=== PATIENT | female | born 1945 | race Caucasian/White ===

== ENCOUNTER 2017-12-01 15:48 | Inpatient (IN) ==
--- NOTE | 2017-12-01 15:52 | Emergency Department Note ---
Disposition Clinical Impression: Altered mental status, Pneumonia, CVA (cerebral vascular accident) Disposition: Admitted As Inpatient Condition: Fair General Adult HPI - General Stated complaint: Lethargic Time Seen by Provider: 12/01/17 15:51 - Related Data Home Medications Medication Instructions Recorded Confirmed Lisinopril [Zestril] 20 mg PO DAILY 03/02/15 10/03/17 Metoprolol [Lopressor] 50 mg PO BID 03/02/15 10/03/17 risperiDONE [Risperidone] 0.5 mg PO BID #0 03/02/15 10/03/17 Acetaminophen [Tylenol] 1,000 mg PO Q4H PRN 11/18/15 10/03/17 Alendronate Sodium [Fosamax] 70 mg PO WE 11/18/15 10/03/17 Bismuth Subsalicylate 15 ml PO Q4H PRN 11/18/15 10/03/17 [PEPTO-BISMOL (262mg/15mL) Susp] Calcium Carbonate/Vitamin D3 1 tab PO BID 11/18/15 10/03/17 [Oyster Shell 500-Vit D3 200 Tb] Cholecalciferol (D-3) [Vitamin D] 2,000 unit PO DAILY 11/18/15 10/03/17 Divalproex (24 HR) [Depakote ER 1,000 mg PO DAILY 11/18/15 10/03/17 (24 HR)] GuaiFENesin/Dextromethorphan 10 ml PO BID PRN 11/18/15 10/03/17 [Robitussin/Dm] Haloperidol 0.5 mg PO BID PRN 11/18/15 10/03/17 Loperamide HCl [Imodium A-D] 2 mg PO Q4H PRN 11/18/15 10/03/17 Loratadine [Claritin] 10 mg PO DAILY 11/18/15 10/03/17 MOM Conc [MILK OF MAGNESIA conc] 30 ml PO DAILY PRN 11/18/15 10/03/17 Multivitamin [Multi-Day Vitamins] 1 tab PO DAILY 11/18/15 10/03/17 [place]-3/Dha/Epa/Fish Oil [Fish Oil 1,000 mg PO TID 11/18/15 10/03/17 1,000 mg Softgel] Paroxetine HCl 10 mg PO DAILY 11/18/15 10/03/17 Chloraseptic [place] [Chloraseptic] 2 spray MM Q2H PRN 03/01/16 10/03/17 Ciclopirox [Loprox] 1 appl TP 3XW 03/01/16 10/03/17 Dicyclomine [Bentyl] 10 mg PO QID 03/01/16 10/03/17 Mometasone Furoate [Elocon] 1 appl TP SUTUTH 03/01/16 10/03/17 Selenium Sulfide/Menthol [Selsun 1 appl TP 3XW 03/01/16 10/03/17 Blue 1% Shampoo] Lipase/Protease/Amylase [Buck Abreu 1 each PO BID 04/05/16 10/03/17 12,000 Units Capsule] Lipase/Protease/Amylase [Buck Abreu 1 each PO TIDWM 04/05/16 10/03/17 24,000 Units Capsule] Betamethasone/Propylene Glyc 1 appl TP MOWEFR 08/25/17 10/03/17 [Betamethasone Dp Aug 0.05% Lot] Furosemide [Lasix] 20 mg PO DAILY PRN 08/25/17 10/03/17 Oxygen 2 l NS AD 08/25/17 10/03/17 Pravastatin Sodium 10 mg PO HS 08/25/17 10/03/17 Simethicone [Gas-X] 160 mg PO BID PRN 08/25/17 10/03/17 metFORMIN [Glucophage] 500 mg PO BID 08/25/17 10/03/17 raNITIdine HCl [Zantac] 150 mg PO BID PRN 08/25/17 10/03/17 Previous Rx's Medication Instructions Recorded Omeprazole [PriLOSEC] 20 mg PO DAILY #30 cap 10/09/16 Loperamide [Imodium] 2 mg PO DAILY #60 capsule 03/28/17 Lactobacillus [Culturelle] 1 each PO BID capmykel 08/31/17 Aspirin [Lo-Dose Aspirin EC] 81 mg PO DAILY #30 tablet. 09/26/17 Nitrofurantoin (BID) [Macrobid] 100 mg PO BID #14 capsule 10/28/17 Phenazopyridine HCl [Pyridium] 200 mg PO TIDAC PRN #30 tab 10/28/17 Allergies Allergy/AdvReac Type Severity Reaction Status Date / Time Penicillins Allergy Severe Anaphylaxis Verified 12/01/17 15:51 "Mycin meds" Allergy See Uncoded 10/03/17 10:49 Comments Past Medical History - Past Medical History Medical history: Reports: cancer (Breast), diabetes, GERD, hyperlipidemia, hypertension, seizures, other (Pancreatic Insufficiency; Osteoporosis (worded as bone loss)) Surgical history: Reports: breast surgery (Right mastectomy; Pneumothorax secondary to biopsy 2013), cholecystectomy, other (Low anterior resection takedown of splenic flexure 03/03/2015) Psychiatric history: Reports: anxiety, depression, other (OCD) - Social History Smoking Status: Never smoker Smokeless Tobacco Status: No Alcohol use: Reports: none Drug use: Reports: none Course Vital Signs Temperature 98.0 F 12/01/17 15:51 Pulse Rate 95 12/01/17 15:51 Respiratory Rate 18 12/01/17 15:51 Blood Pressure 128/71 12/01/17 15:51 O2 Sat by Pulse Oximetry 94 12/01/17 15:51 Temperature 98.0 F 12/01/17 15:51 Pulse Rate 90 12/01/17 18:07 Respiratory Rate 24 12/01/17 18:07 Blood Pressure 147/80 12/01/17 18:07 O2 Sat by Pulse Oximetry 96 12/01/17 18:07 Oxygen Delivery Oxygen Delivery Nasal Cannula Medical Decision Making - Lab Data Result diagrams: 12/01/17 16:46 12/01/17 16:46 Lab Results 12/01/17 12/01/17 12/01/17 Range/Units 16:05 16:46 16:46 WBC 10.0 (4.3-11.1) K/mcL RBC 3.66 L (3.82-4.97) M/mcL Hgb 12.3 (11.5-15.4) g/dL Hct 36.1 (35.3-44.9) % MCV 98.6 (83.0-100.0) fL MCH 33.6 H (28.0-33.3) pg MCHC 34.1 (31.6-35.5) g/dL RDW 12.2 (11.5-14.5) % Plt Count 135 L (140-400) K/mcL MPV 10.0 (9.4-12.4) fL Immature Gran % 0.2 (0-4) % Seg Neutrophils % 63.4 % Lymphocytes % 26.3 % Monocytes % 9.8 % Eosinophils % 0.2 % Basophils % 0.1 % Neutrophils # 6.4 (1.6-8.9) K/mcL Lymphocytes # 2.6 (0.6-4.6) K/mcL Monocytes # 1.0 (0.0-1.3) K/mcL Eosinophils # 0.0 (0.0-0.6) K/mcL Basophils # 0.0 (0.0-0.2) K/mcL Sodium 136 (136-145) mEq/L Potassium 4.0 (3.5-5.1) mEq/L Chloride 101 (98-107) mEq/L Carbon Dioxide 25 (23-29) mEq/L BUN 13 (8-23) mg/dL Creatinine 0.56 L (0.60-1.20) mg/dL Est GFR ( Amer) > 60 (> 60) Est GFR (Non-Af Amer) > 60 (> 60) BUN/Creatinine Ratio 23 (6-26) Glucose 155 H (70-105) mg/dL Calculated Osmolality 285 (280-300) Lactic Acid (0.5-2.2) mmol/L Calcium 9.7 (8.6-10.3) mg/dL Total Bilirubin (0.3-1.0) mg/dL Direct Bilirubin (0.0-0.2) mg/dL Indirect Bilirubin (0.0-1.2) mg/dL AST (13-39) Units/L ALT (7-52) Units/L Alkaline Phosphatase (34-104) Units/L Ammonia (16-53) mcmol/L Troponin I (< 0.04) ng/mL Serum Total Protein (6.4-8.9) g/dL Albumin (3.5-5.7) g/dL Globulin (2.4-3.5) g/dL Albumin/Globulin Ratio (1.1-2.2) Urine Color Yellow (Yellow) Urine Clarity Clear (Clear) Urine pH 6.0 (5.0-8.0) pH Units Ur Specific [place] 1.022 (1.010-1.025) Urine Protein Negative (Neg-Trace) mg/dL Urine Glucose (UA) 100 H (Normal) mg/dL Urine Ketones 40 H (Negative) mg/dL Urine Blood Negative (Negative) Urine Nitrite Negative (Negative) Urine Bilirubin Negative (Negative) Urine Urobilinogen Normal (Normal) mg/dL Ur Leukocyte Esterase Negative (Negative) Ur Culture Indicated? NO (NO) Valproic Acid (50-100) mcg/mL 12/01/17 12/01/17 12/01/17 Range/Units 16:46 16:46 16:46 WBC (4.3-11.1) K/mcL RBC (3.82-4.97) M/mcL Hgb (11.5-15.4) g/dL Hct (35.3-44.9) % MCV (83.0-100.0) fL MCH (28.0-33.3) pg MCHC (31.6-35.5) g/dL RDW (11.5-14.5) % Plt Count (140-400) K/mcL MPV (9.4-12.4) fL Immature Gran % (0-4) % Seg Neutrophils % % Lymphocytes % % Monocytes % % Eosinophils % % Basophils % % Neutrophils # (1.6-8.9) K/mcL Lymphocytes # (0.6-4.6) K/mcL Monocytes # (0.0-1.3) K/mcL Eosinophils # (0.0-0.6) K/mcL Basophils # (0.0-0.2) K/mcL Sodium (136-145) mEq/L Potassium (3.5-5.1) mEq/L Chloride (98-107) mEq/L Carbon Dioxide (23-29) mEq/L BUN (8-23) mg/dL Creatinine (0.60-1.20) mg/dL Est GFR ( Amer) (> 60) Est GFR (Non-Af Amer) (> 60) BUN/Creatinine Ratio (6-26) Glucose (70-105) mg/dL Calculated Osmolality (280-300) Lactic Acid 4.1 H* (0.5-2.2) mmol/L Calcium (8.6-10.3) mg/dL Total Bilirubin 0.1 L (0.3-1.0) mg/dL Direct Bilirubin 0.1 (0.0-0.2) mg/dL Indirect Bilirubin 0.0 (0.0-1.2) mg/dL AST 15 (13-39) Units/L ALT 20 (7-52) Units/L Alkaline Phosphatase 46 (34-104) Units/L Ammonia (16-53) mcmol/L Troponin I < 0.03 (< 0.04) ng/mL Serum Total Protein 6.6 (6.4-8.9) g/dL Albumin 4.1 (3.5-5.7) g/dL Globulin 2.5 (2.4-3.5) g/dL Albumin/Globulin Ratio 1.6 (1.1-2.2) Urine Color (Yellow) Urine Clarity (Clear) Urine pH (5.0-8.0) pH Units Ur Specific [place] (1.010-1.025) Urine Protein (Neg-Trace) mg/dL Urine Glucose (UA) (Normal) mg/dL Urine Ketones (Negative) mg/dL Urine Blood (Negative) Urine Nitrite (Negative) Urine Bilirubin (Negative) Urine Urobilinogen (Normal) mg/dL Ur Leukocyte Esterase (Negative) Ur Culture Indicated? (NO) Valproic Acid 56 (50-100) mcg/mL 12/01/17 Range/Units 16:46 WBC (4.3-11.1) K/mcL RBC (3.82-4.97) M/mcL Hgb (11.5-15.4) g/dL Hct (35.3-44.9) % MCV (83.0-100.0) fL MCH (28.0-33.3) pg MCHC (31.6-35.5) g/dL RDW (11.5-14.5) % Plt Count (140-400) K/mcL MPV (9.4-12.4) fL Immature Gran % (0-4) % Seg Neutrophils % % Lymphocytes % % Monocytes % % Eosinophils % % Basophils % % Neutrophils # (1.6-8.9) K/mcL Lymphocytes # (0.6-4.6) K/mcL Monocytes # (0.0-1.3) K/mcL Eosinophils # (0.0-0.6) K/mcL Basophils # (0.0-0.2) K/mcL Sodium (136-145) mEq/L Potassium (3.5-5.1) mEq/L Chloride (98-107) mEq/L Carbon Dioxide (23-29) mEq/L BUN (8-23) mg/dL Creatinine (0.60-1.20) mg/dL Est GFR ( Amer) (> 60) Est GFR (Non-Af Amer) (> 60) BUN/Creatinine Ratio (6-26) Glucose (70-105) mg/dL Calculated Osmolality (280-300) Lactic Acid (0.5-2.2) mmol/L Calcium (8.6-10.3) mg/dL Total Bilirubin (0.3-1.0) mg/dL Direct Bilirubin (0.0-0.2) mg/dL Indirect Bilirubin (0.0-1.2) mg/dL AST (13-39) Units/L ALT (7-52) Units/L Alkaline Phosphatase (34-104) Units/L Ammonia 52 (16-53) mcmol/L Troponin I (< 0.04) ng/mL Serum Total Protein (6.4-8.9) g/dL Albumin (3.5-5.7) g/dL Globulin (2.4-3.5) g/dL Albumin/Globulin Ratio (1.1-2.2) Urine Color (Yellow) Urine Clarity (Clear) Urine pH (5.0-8.0) pH Units Ur Specific [place] (1.010-1.025) Urine Protein (Neg-Trace) mg/dL Urine Glucose (UA) (Normal) mg/dL Urine Ketones (Negative) mg/dL Urine Blood (Negative) Urine Nitrite (Negative) Urine Bilirubin (Negative) Urine Urobilinogen (Normal) mg/dL Ur Leukocyte Esterase (Negative) Ur Culture Indicated? (NO) Valproic Acid (50-100) mcg/mL Attestation Statement - Attestation Attestation: I examined this patient and my medical decision-making was reviewed with the Resident Physician. I agree with the documented findings, disposition and treatment plan as described except to the extent set forth below. Cees-je-keiz time provided Patient arrives by EMS from a senior living. She has a history of MRDD. She is a limited historian. It was reported that she had changes in mentation and a low- grade fever. She was hyperglycemic prehospital consistent with her diabetes. She is oxygen dependent. Appears in no acute distress upon arrival. Medication list reviewed by me
[2017-12-01 16:32] LABS: Bilirubin,Urine Negative (Negative); Blood,Urine Negative (Negative); Clarity,Urine Clear (Clear); Color,Urine Yellow (Yellow); Glucose,Urine (UA) 100 mg/dL (Normal); Ketones,Urine 40 mg/dL (Negative); Leukocyte Esterase,Urine Negative (Negative); Nitrite,Urine Negative (Negative); Protein,Urine Negative (Neg-Trace); Specific Gravity,Urine 1.022 (1.010-1.025); Urobilinogen,Urine Normal (Normal)
--- NOTE | 2017-12-01 16:52 | Emergency Department Note ---
Disposition Clinical Impression: Altered mental status Qualifiers: Altered mental status type: somnolence Qualified Code(s): R40.0 - Somnolence Pneumonia Qualifiers: Pneumonia type: due to unspecified organism Laterality: left Lung location: lower lobe of lung Qualified Code(s): J18.1 - Lobar pneumonia, unspecified organism CVA (cerebral vascular accident) Qualifiers: CVA mechanism: unspecified Qualified Code(s): I63.9 - Cerebral infarction, unspecified Disposition: Admitted As Inpatient Condition: Fair Time of Disposition: 18:28 Altered Mental Status HPI - General Stated Complaint: Lethargic Time Seen by Provider: 12/01/17 15:51 Source: EMS Limitations: physical limitation Nursing Notes Reviewed: Yes Vital Signs Reviewed: Yes - History of Present Illness HPI Narrative: Patient is a 72-year-old female who presents to [facility] ED via EMS with concern for altered mental status and lethargy. Patient's lap layer states that patient is normally very talkative even though she is hard to understand and is able to ambulate with a walker. States when she came in today, patient has been very sleepy all morning and she had trouble getting her to wake up even to eat. Denies patient having any recent symptoms including chest pain, difficulty breathing, abdominal pain, problems with urination or bowel movements. Patient is MRDD and is very difficult to understand. MD complaint: altered mental status Onset (ago): hour(s) Timing confirmed by: caregiver Pain Severity: moderate Associated symptoms: Reports: denies other symptoms - Related Data Home Medications Medication Instructions Recorded Confirmed Lisinopril [Zestril] 20 mg PO DAILY 03/02/15 10/03/17 Metoprolol [Lopressor] 50 mg PO BID 03/02/15 10/03/17 risperiDONE [Risperidone] 0.5 mg PO BID #0 03/02/15 10/03/17 Acetaminophen [Tylenol] 1,000 mg PO Q4H PRN 11/18/15 10/03/17 Alendronate Sodium [Fosamax] 70 mg PO WE 11/18/15 10/03/17 Bismuth Subsalicylate 15 ml PO Q4H PRN 11/18/15 10/03/17 [PEPTO-BISMOL (262mg/15mL) Susp] Calcium Carbonate/Vitamin D3 1 tab PO BID 11/18/15 10/03/17 [Oyster Shell 500-Vit D3 200 Tb] Cholecalciferol (D-3) [Vitamin D] 2,000 unit PO DAILY 11/18/15 10/03/17 Divalproex (24 HR) [Depakote ER 1,000 mg PO DAILY 11/18/15 10/03/17 (24 HR)] GuaiFENesin/Dextromethorphan 10 ml PO BID PRN 11/18/15 10/03/17 [Robitussin/Dm] Haloperidol 0.5 mg PO BID PRN 11/18/15 10/03/17 Loperamide HCl [Imodium A-D] 2 mg PO Q4H PRN 11/18/15 10/03/17 Loratadine [Claritin] 10 mg PO DAILY 11/18/15 10/03/17 MOM Conc [MILK OF MAGNESIA conc] 30 ml PO DAILY PRN 11/18/15 10/03/17 Multivitamin [Multi-Day Vitamins] 1 tab PO DAILY 11/18/15 10/03/17 [place]-3/Dha/Epa/Fish Oil [Fish Oil 1,000 mg PO TID 11/18/15 10/03/17 1,000 mg Softgel] Paroxetine HCl 10 mg PO DAILY 11/18/15 10/03/17 Chloraseptic [place] [Chloraseptic] 2 spray MM Q2H PRN 03/01/16 10/03/17 Ciclopirox [Loprox] 1 appl TP 3XW 03/01/16 10/03/17 Dicyclomine [Bentyl] 10 mg PO QID 03/01/16 10/03/17 Mometasone Furoate [Elocon] 1 appl TP SUTUTH 03/01/16 10/03/17 Selenium Sulfide/Menthol [Selsun 1 appl TP 3XW 03/01/16 10/03/17 Blue 1% Shampoo] Lipase/Protease/Amylase [Buck Abreu 1 each PO BID 04/05/16 10/03/17 12,000 Units Capsule] Lipase/Protease/Amylase [Buck Abreu 1 each PO TIDWM 04/05/16 10/03/17 24,000 Units Capsule] Betamethasone/Propylene Glyc 1 appl TP MOWEFR 08/25/17 10/03/17 [Betamethasone Dp Aug 0.05% Lot] Furosemide [Lasix] 20 mg PO DAILY PRN 08/25/17 10/03/17 Oxygen 2 l NS AD 08/25/17 10/03/17 Pravastatin Sodium 10 mg PO HS 08/25/17 10/03/17 Simethicone [Gas-X] 160 mg PO BID PRN 08/25/17 10/03/17 metFORMIN [Glucophage] 500 mg PO BID 08/25/17 10/03/17 raNITIdine HCl [Zantac] 150 mg PO BID PRN 08/25/17 10/03/17 Previous Rx's Medication Instructions Recorded Omeprazole [PriLOSEC] 20 mg PO DAILY #30 cap 10/09/16 Loperamide [Imodium] 2 mg PO DAILY #60 capsule 03/28/17 Lactobacillus [Culturelle] 1 each PO BID cap.sprink 08/31/17 Aspirin [Lo-Dose Aspirin EC] 81 mg PO DAILY #30 tablet. 09/26/17 Nitrofurantoin (BID) [Macrobid] 100 mg PO BID #14 capsule 10/28/17 Phenazopyridine HCl [Pyridium] 200 mg PO TIDAC PRN #30 tab 10/28/17 Allergies Allergy/AdvReac Type Severity Reaction Status Date / Time Penicillins Allergy Severe Anaphylaxis Verified 12/01/17 15:51 "Mycin meds" Allergy See Uncoded 10/03/17 10:49 Comments All systems ED: reviewed and negative except as stated. Past Medical History - Past Medical History Attestation: Yes The following information was validated with the patient. Source: old records reviewed, other (caregiver) Medical history: Reports: cancer (Breast), diabetes, GERD, hyperlipidemia, hypertension, seizures, other (Pancreatic Insufficiency; Osteoporosis (worded as bone loss)) Surgical history: Reports: breast surgery (Right mastectomy; Pneumothorax secondary to biopsy 2013), cholecystectomy, other (Low anterior resection takedown of splenic flexure 03/03/2015) Psychiatric history: Reports: anxiety, depression, other (OCD) SWITCH CREW SUPERVISOR history: Reports: no SWITCH CREW SUPERVISOR history - Social History Smoking Status: Never smoker Smokeless Tobacco Status: No Alcohol use: Reports: none Drug use: Reports: none Physical Exam - General Limitations: physical limitation General appearance: alert, in no apparent distress - Head Head exam: atraumatic, normocephalic - Eye Eye exam: Present: normal appearance, PERRL, EOMI - ENT ENT exam: normal exam, normal oropharynx, mucous membranes moist - Neck Neck exam: Present: normal inspection, full ROM, trachea midline - Chest Chest inspection: Present: normal inspection, symmetric chest wall rise - Respiratory Respiratory exam: Present: normal lung sounds bilaterally - Cardiovascular Cardiovascular exam: Present: regular rate, normal rhythm, normal heart sounds - Abdominal Exam Abdominal exam: Present: soft, Non-Tender. Absent: tenderness, distention, guarding, rebound, rigidity - Extremities Exam Extremities exam: Present: normal inspection, full ROM. Absent: tenderness, pedal edema - Neurological Exam Neurological exam: Present: alert - Psychiatric Psychiatric exam: Present: normal affect, normal mood - Skin Skin exam: Present: warm, dry, intact, normal color Course Course Narrative: Patient seen and examined. Altered mental status per lap layer. Patient normally able to walk with a walker and able to talk. Patient more sleepy than normal today. Altered mental status workup initiated along with CT of the head. We will get a chest x-ray, urine analysis to evaluate for any signs of infection. - Reevaluation(s) Reevaluation #1: Patient's lab work shows a lactic acid of 4.1. Suspect this is likely secondary to dehydration. However since her chest x-ray does show some signs of atelectasis/possible left-sided pneumonia, we will go ahead and cover her with Levaquin. Upon talking with the patient's and her lap layer, the lap layer then stated that patient also has a left-sided facial droop and has been leaning over to the left side and they are concerned that she may have had a stroke. Unknown last known well. Patient does have equal insurance claims representative strength but is unable to cooperate otherwise with the neurologic exam. CT of the head is unremarkable. We will admit for CVA workup/pneumonia. I discussed with the hospitalist Dr. Parks who has accepted patient for admission. He would also like neurology consult did for her CVA workup. Neurology was paged. Time: 18:15 Reevaluation #2: I discussed with neurologist Dr. Bolanos who states he will see her in consultation tomorrow. Aspirin ordered. Time: 18:26 Vital Signs Temperature 98.0 F 12/01/17 15:51 Pulse Rate 95 12/01/17 15:51 Respiratory Rate 18 12/01/17 15:51 Blood Pressure 128/71 12/01/17 15:51 O2 Sat by Pulse Oximetry 94 12/01/17 15:51 Temperature 98.0 F 12/01/17 15:51 Pulse Rate 90 12/01/17 18:07 Respiratory Rate 24 12/01/17 18:07 Blood Pressure 147/80 12/01/17 18:07 O2 Sat by Pulse Oximetry 96 12/01/17 18:07 Oxygen Delivery Oxygen Delivery Nasal Cannula Altered Mental Status - Medical Records Medical records reviewed: Yes I reviewed the patient's medical records. - Lab Data Lab results reviewed: Yes I reviewed the patient's lab results. Result diagrams: 12/01/17 16:46 12/01/17 16:46 Lab Results 12/01/17 12/01/17 12/01/17 Range/Units 16:05 16:46 16:46 WBC 10.0 (4.3-11.1) K/mcL RBC 3.66 L (3.82-4.97) M/mcL Hgb 12.3 (11.5-15.4) g/dL Hct 36.1 (35.3-44.9) % MCV 98.6 (83.0-100.0) fL MCH 33.6 H (28.0-33.3) pg MCHC 34.1 (31.6-35.5) g/dL RDW 12.2 (11.5-14.5) % Plt Count 135 L (140-400) K/mcL MPV 10.0 (9.4-12.4) fL Immature Gran % 0.2 (0-4) % Seg Neutrophils % 63.4 % Lymphocytes % 26.3 % Monocytes % 9.8 % Eosinophils % 0.2 % Basophils % 0.1 % Neutrophils # 6.4 (1.6-8.9) K/mcL Lymphocytes # 2.6 (0.6-4.6) K/mcL Monocytes # 1.0 (0.0-1.3) K/mcL Eosinophils # 0.0 (0.0-0.6) K/mcL Basophils # 0.0 (0.0-0.2) K/mcL Sodium 136 (136-145) mEq/L Potassium 4.0 (3.5-5.1) mEq/L Chloride 101 (98-107) mEq/L Carbon Dioxide 25 (23-29) mEq/L BUN 13 (8-23) mg/dL Creatinine 0.56 L (0.60-1.20) mg/dL Est GFR ( Amer) > 60 (> 60) Est GFR (Non-Af Amer) > 60 (> 60) BUN/Creatinine Ratio 23 (6-26) Glucose 155 H (70-105) mg/dL Calculated Osmolality 285 (280-300) Lactic Acid (0.5-2.2) mmol/L Calcium 9.7 (8.6-10.3) mg/dL Total Bilirubin (0.3-1.0) mg/dL Direct Bilirubin (0.0-0.2) mg/dL Indirect Bilirubin (0.0-1.2) mg/dL AST (13-39) Units/L ALT (7-52) Units/L Alkaline Phosphatase (34-104) Units/L Ammonia (16-53) mcmol/L Troponin I (< 0.04) ng/mL Serum Total Protein (6.4-8.9) g/dL Albumin (3.5-5.7) g/dL Globulin (2.4-3.5) g/dL Albumin/Globulin Ratio (1.1-2.2) Urine Color Yellow (Yellow) Urine Clarity Clear (Clear) Urine pH 6.0 (5.0-8.0) pH Units Ur Specific [place] 1.022 (1.010-1.025) Urine Protein Negative (Neg-Trace) mg/dL Urine Glucose (UA) 100 H (Normal) mg/dL Urine Ketones 40 H (Negative) mg/dL Urine Blood Negative (Negative) Urine Nitrite Negative (Negative) Urine Bilirubin Negative (Negative) Urine Urobilinogen Normal (Normal) mg/dL Ur Leukocyte Esterase Negative (Negative) Ur Culture Indicated? NO (NO) Valproic Acid (50-100) mcg/mL 12/01/17 12/01/17 12/01/17 Range/Units 16:46 16:46 16:46 WBC (4.3-11.1) K/mcL RBC (3.82-4.97) M/mcL Hgb (11.5-15.4) g/dL Hct (35.3-44.9) % MCV (83.0-100.0) fL MCH (28.0-33.3) pg MCHC (31.6-35.5) g/dL RDW (11.5-14.5) % Plt Count (140-400) K/mcL MPV (9.4-12.4) fL Immature Gran % (0-4) % Seg Neutrophils % % Lymphocytes % % Monocytes % % Eosinophils % % Basophils % % Neutrophils # (1.6-8.9) K/mcL Lymphocytes # (0.6-4.6) K/mcL Monocytes # (0.0-1.3) K/mcL Eosinophils # (0.0-0.6) K/mcL Basophils # (0.0-0.2) K/mcL Sodium (136-145) mEq/L Potassium (3.5-5.1) mEq/L Chloride (98-107) mEq/L Carbon Dioxide (23-29) mEq/L BUN (8-23) mg/dL Creatinine (0.60-1.20) mg/dL Est GFR ( Amer) (> 60) Est GFR (Non-Af Amer) (> 60) BUN/Creatinine Ratio (6-26) Glucose (70-105) mg/dL Calculated Osmolality (280-300) Lactic Acid 4.1 H* (0.5-2.2) mmol/L Calcium (8.6-10.3) mg/dL Total Bilirubin 0.1 L (0.3-1.0) mg/dL Direct Bilirubin 0.1 (0.0-0.2) mg/dL Indirect Bilirubin 0.0 (0.0-1.2) mg/dL AST 15 (13-39) Units/L ALT 20 (7-52) Units/L Alkaline Phosphatase 46 (34-104) Units/L Ammonia (16-53) mcmol/L Troponin I < 0.03 (< 0.04) ng/mL Serum Total Protein 6.6 (6.4-8.9) g/dL Albumin 4.1 (3.5-5.7) g/dL Globulin 2.5 (2.4-3.5) g/dL Albumin/Globulin Ratio 1.6 (1.1-2.2) Urine Color (Yellow) Urine Clarity (Clear) Urine pH (5.0-8.0) pH Units Ur Specific [place] (1.010-1.025) Urine Protein (Neg-Trace) mg/dL Urine Glucose (UA) (Normal) mg/dL Urine Ketones (Negative) mg/dL Urine Blood (Negative) Urine Nitrite (Negative) Urine Bilirubin (Negative) Urine Urobilinogen (Normal) mg/dL Ur Leukocyte Esterase (Negative) Ur Culture Indicated? (NO) Valproic Acid 56 (50-100) mcg/mL 12/01/17 Range/Units 16:46 WBC (4.3-11.1) K/mcL RBC (3.82-4.97) M/mcL Hgb (11.5-15.4) g/dL Hct (35.3-44.9) % MCV (83.0-100.0) fL MCH (28.0-33.3) pg MCHC (31.6-35.5) g/dL RDW (11.5-14.5) % Plt Count (140-400) K/mcL MPV (9.4-12.4) fL Immature Gran % (0-4) % Seg Neutrophils % % Lymphocytes % % Monocytes % % Eosinophils % % Basophils % % Neutrophils # (1.6-8.9) K/mcL Lymphocytes # (0.6-4.6) K/mcL Monocytes # (0.0-1.3) K/mcL Eosinophils # (0.0-0.6) K/mcL Basophils # (0.0-0.2) K/mcL Sodium (136-145) mEq/L Potassium (3.5-5.1) mEq/L Chloride (98-107) mEq/L Carbon Dioxide (23-29) mEq/L BUN (8-23) mg/dL Creatinine (0.60-1.20) mg/dL Est GFR ( Amer) (> 60) Est GFR (Non-Af Amer) (> 60) BUN/Creatinine Ratio (6-26) Glucose (70-105) mg/dL Calculated Osmolality (280-300) Lactic Acid (0.5-2.2) mmol/L Calcium (8.6-10.3) mg/dL Total Bilirubin (0.3-1.0) mg/dL Direct Bilirubin (0.0-0.2) mg/dL Indirect Bilirubin (0.0-1.2) mg/dL AST (13-39) Units/L ALT (7-52) Units/L Alkaline Phosphatase (34-104) Units/L Ammonia 52 (16-53) mcmol/L Troponin I (< 0.04) ng/mL Serum Total Protein (6.4-8.9) g/dL Albumin (3.5-5.7) g/dL Globulin (2.4-3.5) g/dL Albumin/Globulin Ratio (1.1-2.2) Urine Color (Yellow) Urine Clarity (Clear) Urine pH (5.0-8.0) pH Units Ur Specific [place] (1.010-1.025) Urine Protein (Neg-Trace) mg/dL Urine Glucose (UA) (Normal) mg/dL Urine Ketones (Negative) mg/dL Urine Blood (Negative) Urine Nitrite (Negative) Urine Bilirubin (Negative) Urine Urobilinogen (Normal) mg/dL Ur Leukocyte Esterase (Negative) Ur Culture Indicated? (NO) Valproic Acid (50-100) mcg/mL - Radiology Data Radiology results reviewed: Yes I reviewed the patient's radiology results. Chest X-Ray 12/01/17 15:53 IMPRESSION: Small left pleural effusion with overlying atelectasis versus pneumonia. D/ / Dwight Smith MD / Dwight Smith MD Interpreting Provider: Dwight Smith MD Head CT 12/01/17 15:55 IMPRESSION: No acute intracranial abnormality. Mild atrophic changes. D/ / Jorge Mc MD / Jorge Mc MD Interpreting Provider: Jorge Mc MD - EKG Data EKG attestation: Yes I reviewed and interpreted this EKG. EKG results narrative: EKG done at 1604 shows normal sinus rhythm with a rate of [address] elevation or depression. Left axis deviation. Appears unchanged from prior EKG done at Aug 25 2017. TPA Checklist - LKW: 3-4.5 hrs Add. Warnings/Precautions Patient/family understanding: The patient/family members have been counseled and understood the risk, benefit , and alternatives of treatment.
[2017-12-01 17:03] LABS: Basophils % 0.1 %; Eosinophils % 0.2 %; Hematocrit 36.1 % (35.3-44.9); Hemoglobin 12.3 g/dL (11.5-15.4); Immature Granulocytes % 0.2 % (0-4); Lymphocytes # 2.6 K/mcL (0.6-4.6); Lymphocytes % 26.3 %; Mean Corpuscular HGB Conc 34.1 g/dL (31.6-35.5); Mean Corpuscular Hemoglobin 33.6 pg (28.0-33.3); Mean Corpuscular Volume 98.6 fL (83.0-100.0); Monocytes % 9.8 %; Neutrophils # 6.4 K/mcL (1.6-8.9); Platelet Count 135 K/mcL (140-400); Red Blood Count 3.66 M/mcL (3.82-4.97); Red Cell Distribution Width 12.2 % (11.5-14.5); Segmented Neutrophils % 63.4 %
[2017-12-01 17:23] LABS: Alanine Aminotransferase 20 Units/L (7-52); Albumin 4.1 g/dL (3.5-5.7); Albumin/Globulin Ratio 1.6 (1.1-2.2); Alkaline Phosphatase 46 Units/L (34-104); Aspartate Amino Transferase 15 Units/L (13-39); Bilirubin,Direct 0.1 mg/dL (0.0-0.2); Bilirubin,Total 0.1 mg/dL (0.3-1.0); Globulin 2.5 g/dL (2.4-3.5); Total Protein 6.6 g/dL (6.4-8.9)
[2017-12-01] MEDS ORDERED: 0.9 % Sodium Chloride 1,000 ML IVC ONE (17:23)
[2017-12-01 17:24] LABS: BUN/Creatinine Ratio 23 (6-26); Blood Urea Nitrogen 13 mg/dL (8-23); Calcium 9.7 mg/dL (8.6-10.3); Carbon Dioxide 25 mEq/L (23-29); Chloride 101 mEq/L (98-107); Glucose 155 mg/dL (70-105); Osmolality,Calculated 285 (280-300); Sodium 136 mEq/L (136-145); eGFR For African Americans > 60 (> 60); eGFR For Non-African Americans > 60 (> 60)
[2017-12-01 17:45] LABS: Troponin I < 0.03 ng/mL (< 0.04)
[2017-12-01] MEDS ORDERED: Levofloxacin 750 MG/150 ML 750 MG/150 ML BAG IVPB ONE (17:56)
[2017-12-01] MEDS ORDERED: Aspirin 81 MG TAB.CHEW PO STA (18:20)
[2017-12-01] MEDS ORDERED: Acetaminophen 325 MG TABLET PO PRN (18:49)
[2017-12-01] MEDS ORDERED: Nitroglycerin 0.4 MG TAB.SUBL SL PRN (18:49)
[2017-12-01] MEDS ORDERED: Ipratropium/Albuterol Neb 3 ML IH PRN (18:49)
[2017-12-01] MEDS ORDERED: Dextrose Gel 15 GM/37.5 ML TUBE PO PRN ×2 (19:00)
[2017-12-01] MEDS ORDERED: D5% in Water 1,000 ML IVC PRN (19:00)
[2017-12-01] MEDS ORDERED: *HR* Dextrose 50 % in Water (Syg) 50 ML SYRINGE IVP PRN (19:00)
[2017-12-01] MEDS ORDERED: OXYCODONE Oral CONC 10 MG/0.5 ML ORAL.SYG SL PRN (19:00)
[2017-12-01] MEDS ORDERED: Ondansetron 4 MG/2 ML VIAL IVP PRN (19:00)
[2017-12-01] MEDS ORDERED: Naloxone 0.4 MG/ML INJ IVP PRN (19:00)
[2017-12-01] MEDS ORDERED: Ketorolac 15 MG/ML VIAL IVP PRN (19:00)
--- NOTE | 2017-12-01 19:14 | Internal Med History&Physical ---
Date of Encounter: 12/01/17 Time of Encounter: 19:11 Internal Medicine - H&P: HPI Chief complaint: Left facial droop Admitted From: Emergency Dept History of present illness: Ms. Lacey is a 72 year old female with a past medical history of MRDD, diabetes type 2 not insulin-dependent, chronic respiratory failure using 2 L continuously, was transferred to the ER as she has been lethargic since 9 AM, having altered mental status, her sole rounder says that she is being more sleepy and noticed a left facial droop since the morning. Patient is not able to provide any history. She walks with a walker but otherwise she has not been able to move much today. Platelets are 135 lactic acid is 4.1 and glucose is 155 and the chest x-ray shows a possible left small pleural effusion, and also an opacity that is compatible with possible pneumonia. CT scan of the head does not show any abnormality. The patient was given Levaquin at the emergency room. Past Med Surg Social Fam HX - Past Medical History Medical history: cancer (Breast cancer, multiple tubal adenomas/colonic mass removed), diabetes (Not insulin-dependent), GERD, hyperlipidemia, hypertension, seizures, other (Pancreatic Insufficiency; Osteoporosis, lung abscess, irritable bowel syndrome, anxiety, depression, chronic respiratory failure using 2 L continuously, MRDD) Additional medical history: deaf Psychiatric history: anxiety, depression, other (OCD) - Past Surgical History Surgical History: breast surgery (Right mastectomy; Pneumothorax secondary to biopsy 2013), cholecystectomy, other (Low anterior resection takedown of splenic flexure 03/03/2015, partial colectomy, pneumothorax after biopsy, mastectomy in 2011, cholecystectomy) Additional surgical history: low anterior colon resection, masectomy - Social History Smoking Status: Never smoker Smokeless Tobacco Status: No Alcohol use: none Drug use: none - Family History Father Living Status: Mother Living Status: Still Living - Additional Family History Additional family history: Heart disease Internal Medicine - H&P: Meds Lisinopril [Zestril] 20 mg PO DAILY 03/02/15 [History] Metoprolol [Lopressor] 50 mg PO BID 03/02/15 [History] risperiDONE [Risperidone] 0.5 mg PO BID #0 03/02/15 [History] Acetaminophen [Tylenol] 1,000 mg PO Q4H PRN 11/18/15 [History] Alendronate Sodium [Fosamax] 70 mg PO WE 11/18/15 [History] Bismuth Subsalicylate [PEPTO-BISMOL (262mg/15mL) Susp] 15 ml PO Q4H PRN [History] Calcium Carbonate/Vitamin D3 [Oyster Shell 500-Vit D3 200 Tb] 1 tab PO BID 11/17 [History] Cholecalciferol (D-3) [Vitamin D] 2,000 unit PO DAILY 11/18/15 [History] Divalproex (24 HR) [Depakote ER (24 HR)] 1,000 mg PO DAILY 11/18/15 [History] GuaiFENesin/Dextromethorphan [Robitussin/Dm] 10 ml PO BID PRN 11/18/15 [History] Haloperidol 0.5 mg PO BID PRN 11/18/15 [History] Loperamide HCl [Imodium A-D] 2 mg PO Q4H PRN 11/18/15 [History] Loratadine [Claritin] 10 mg PO DAILY 11/18/15 [History] MOM Conc [MILK OF MAGNESIA conc] 30 ml PO DAILY PRN 11/18/15 [History] Multivitamin [Multi-Day Vitamins] 1 tab PO DAILY 11/18/15 [History] [place]-3/Dha/Epa/Fish Oil [Fish Oil 1,000 mg Softgel] 1,000 mg PO TID 11/18/15 [ History] Paroxetine HCl 10 mg PO DAILY 11/18/15 [History] Chloraseptic [place] [Chloraseptic] 2 spray MM Q2H PRN 03/01/16 [History] Ciclopirox [Loprox] 1 appl TP 3XW 03/01/16 [History] Dicyclomine [Bentyl] 10 mg PO QID 03/01/16 [History] Mometasone Furoate [Elocon] 1 appl TP SUTUTH 03/01/16 [History] Selenium Sulfide/Menthol [Selsun Blue 1% Shampoo] 1 appl TP 3XW 03/01/16 [ History] Lipase/Protease/Amylase [Buck Abreu 12,000 Units Capsule] 1 each PO BID 04/05/16 [ History] Lipase/Protease/Amylase [Buck Abreu 24,000 Units Capsule] 1 each PO TIDWM [History] Omeprazole [PriLOSEC] 20 mg PO DAILY #30 cap 10/09/16 [Rx] Loperamide [Imodium] 2 mg PO DAILY #60 capsule 03/28/17 [Rx] Betamethasone/Propylene Glyc [Betamethasone Dp Aug 0.05% Lot] 1 appl TP MOWEFR 08/25/17 [History] Furosemide [Lasix] 20 mg PO DAILY PRN 08/25/17 [History] Oxygen 2 l NS AD 08/25/17 [History] Pravastatin Sodium 10 mg PO HS 08/25/17 [History] Simethicone [Gas-X] 160 mg PO BID PRN 08/25/17 [History] metFORMIN [Glucophage] 500 mg PO BID 08/25/17 [History] raNITIdine HCl [Zantac] 150 mg PO BID PRN 08/25/17 [History] Lactobacillus [Culturelle] 1 each PO BID cap.sprink 08/31/17 [Rx] Aspirin [Lo-Dose Aspirin EC] 81 mg PO DAILY #30 tablet.dr 09/26/17 [Rx] Nitrofurantoin (BID) [Macrobid] 100 mg PO BID #14 capsule 10/28/17 [Rx] Phenazopyridine HCl [Pyridium] 200 mg PO TIDAC PRN #30 tab 10/28/17 [Rx] 3 Allergy/AdvReac Type Severity Reaction Status Date / Time Penicillins Allergy Severe Anaphylaxis Verified 12/01/17 15:51 "Mycin meds" Allergy See Uncoded 10/03/17 10:49 Comments All Systems PM: A 10-system review of systems was performed and is negative for pertinent findings except as documented above in the HPI. Review of systems: Unable to be completed due to patient's status - Constitutional Vitals: Temp Pulse Resp BP Pulse Ox 98.0 F 90 24 147/80 96 12/01/17 15:51 12/01/17 18:07 12/01/17 18:07 12/01/17 18:07 12/01/17 18:07 General appearance: Present: A&O X 1, morbidly obese Exam: Left facial droop - Head Head exam: Present: atraumatic, normocephalic - Eye Eye exam: Present: PERRL, conjuntiva pink, sclera anicteric Pupils: Present: PERRL - Neck Neck exam general surgery: Present: supple, trachea midline. Absent: lymphadenopathy - Respiratory Respiratory exam: Present: decreased breath sounds, CTAB. Absent: accessory muscle use, rales, rhonchi, wheezes - Cardiovascular Cardiovascular exam: Present: RRR, +S1, +S2. Absent: diastolic murmur, gallop, rubs, systolic murmur - GI/Abdominal GI/Abdominal exam: Present: distended, normal bowel sounds, soft, no peritoneal signs. Absent: tenderness - Extremities Exam Extremities exam: Present: warm, radial pulses palpable and symmetrical. Absent : calf tenderness, cyanotic, pedal edema - Neurological Exam Neurological exam: Absent: CN II-XII intact, oriented X3, no focal deficits, pronater drift, facial droop, speech deficit Additional comments: Difficult to evaluate whether the patient has left upper extremity weakness or not but she is not following commands properly - Skin Skin exam: Present: dry, intact Internal Med - H&P Results - Labs CBC & Chem 7: 12/01/17 16:46 12/01/17 16:46 - Assessment and plan (1) Pneumonia Current Visit: Yes Status: Acute Assessment and plan: Possible aspiration pneumonia present upon admission Continue Levaquin and Flagyl as the patient is allergic to penicillin Blood cultures, IV fluids, nothing by mouth Protonix for GI prophylaxis and subcutaneous tenderness heparin for DVT prophylaxis. The patient will be admitted as inpatient, expected to stay more than 2 midnights. Full code. Time spent on this admission 40 minutes Qualifiers: Pneumonia type: aspiration pneumonia Laterality: left Lung location: lower lobe of lung Qualified Code(s): J69.0 - Pneumonitis due to inhalation of food and vomit (2) Facial droop Current Visit: Yes Status: Acute Assessment and plan: Possible CVA Order MRI of the brain, echocardiogram, carotid ultrasound Continue aspirin, check lipid panel, continue statin Neurology consult, neuro checks, fall and aspiration precautions Nothing by mouth, speech pathology consult (3) Lactic acidosis Current Visit: Yes Status: Acute Assessment and plan: Recheck lactic acid (4) Diabetes mellitus Current Visit: No Status: Chronic Assessment and plan: Insulin sliding scale Qualifiers: Diabetes mellitus type: type 2 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
[2017-12-01] MEDS: Ipratropium/Albuterol Neb 3 ML IH SCH (21:19)
[2017-12-01] MEDS: 0.9 % Sodium Chloride 1,000 ML IVC SCH (22:04)
[2017-12-01] MEDS: *HR* Heparin 5,000 UNIT/ML VIAL SQ SCH (22:04)
[2017-12-01] MEDS: MetroNIDAZOLE 500 MG/100 ML 500 MG/100 ML BAG IVPB SCH (22:04)
[2017-12-01] MEDS: risperiDONE 0.25 MG TABLET PO SCH (22:04)
[2017-12-01] MEDS: Pantoprazole 40 MG VIAL IVP SCH (22:10)
[2017-12-02] MEDS: Insulin LISPRO 300 UNITS/3 ML VIAL SQ SCH ×4 (00:05→17:04)
[2017-12-02] MEDS: Ipratropium/Albuterol Neb 3 ML IH SCH ×4 (03:31→20:47)
[2017-12-02] MEDS: MetroNIDAZOLE 500 MG/100 ML 500 MG/100 ML BAG IVPB SCH ×3 (04:58→21:52)
[2017-12-02 05:15] LABS: Hematocrit 33.6 % (35.3-44.9); Hemoglobin 11.1 g/dL (11.5-15.4); Mean Corpuscular Hemoglobin 32.3 pg (28.0-33.3); Mean Corpuscular Volume 97.7 fL (83.0-100.0); Mean Platelet Volume 10.1 fL (9.4-12.4); Platelet Count 114 K/mcL (140-400); Red Blood Count 3.44 M/mcL (3.82-4.97); Red Cell Distribution Width 12.4 % (11.5-14.5)
[2017-12-02 05:37] LABS: BUN/Creatinine Ratio 20 (6-26); Blood Urea Nitrogen 10 mg/dL (8-23); Calcium 8.7 mg/dL (8.6-10.3); Carbon Dioxide 29 mEq/L (23-29); Chloride 107 mEq/L (98-107); Chol/HDL Ratio 3.1 (0-4.9); Cholesterol 122 mg/dL (< 200); Glucose 117 mg/dL (70-105); HDL Cholesterol 39 mg/dL (40-59); LDL Cholesterol,Calculated 44 mg/dL (0-99); Osmolality,Calculated 294 (280-300); Potassium 3.8 mEq/L (3.5-5.1); Sodium 142 mEq/L (136-145); Triglycerides 196 mg/dL (< 150); eGFR For African Americans > 60 (> 60); eGFR For Non-African Americans > 60 (> 60)
[2017-12-02] MEDS: *HR* Heparin 5,000 UNIT/ML VIAL SQ SCH ×3 (05:45→21:58)
--- NOTE | 2017-12-02 08:06 | Neurology - Consult Note ---
Date of Encounter: 12/02/17 Time of Encounter: 08:03 Assessment and Plan (1) Altered mental status Current Visit: Yes Status: Acute At this juncture is see no evidence of a primary neurologic process. I believe that her mental status changes are likely due to metabolic/infectious etiologies associated with the pneumonia. Polypharmacy could also be a factor here. However my examination she is alert she is somewhat interactive she does engage this examiner she makes eye contact. I see no differences in tone of the upper or lower extremities no involuntary movements identified. No nuchal rigidity is present. At this juncture I do not feel that any additional neurologic testing is necessary. I will reevaluate her your request. Qualifiers: Altered mental status type: somnolence Qualified Code(s): R40.0 - Somnolence History of Present Illness HPI: The chart was reviewed. Patient was seen and examined. Ms. Lacey is a 72 year old female who is being seen for neurologic consultation secondary to mental status changes. She is a 72-year-old woman with a past history of MRDD and diabetes mellitus chronic respiratory failure. She was transferred to our facility after having altered mental status identified by a roll on worker. There was a questionable left facial droop. Apparently she was not acting herself. Although she is MRDD she is generally conversant awake and alert and interactive. Chest x-ray revealed a small left pleural effusion. This morning she is awake and alert. I did review the CT scan of the brain which revealed generalized cortical atrophy. She is on multiple daily medications. Apparently she has a history of seizures but her valproate level is therapeutic. Past Med Surg Social Fam HX - Past Medical History Medical history: cancer, diabetes, GERD, hyperlipidemia, hypertension, seizures , other Additional medical history: deaf Psychiatric history: anxiety, depression, other - Past Surgical History Surgical History: breast surgery, cholecystectomy, other Additional surgical history: low anterior colon resection, masectomy - Social History Smoking Status: Never smoker Smokeless Tobacco Status: No Alcohol use: none Drug use: none - Family History Father Living Status: Mother Living Status: Still Living Medications and Allergies risperiDONE [Risperidone] 0.5 mg PO BID #0 03/02/15 [History] Acetaminophen [Tylenol] 1,000 mg PO Q4H PRN 11/18/15 [History] Alendronate Sodium [Fosamax] 70 mg PO WE 11/18/15 [History] Bismuth Subsalicylate [PEPTO-BISMOL (262mg/15mL) Susp] 15 ml PO Q4H PRN [History] Cholecalciferol (D-3) [Vitamin D] 2,000 unit PO DAILY 11/18/15 [History] Divalproex (24 HR) [Depakote ER (24 HR)] 1,000 mg PO DAILY 11/18/15 [History] GuaiFENesin/Dextromethorphan [Robitussin/Dm] 10 ml PO BID PRN 11/18/15 [History] Haloperidol 0.5 mg PO BID PRN 11/18/15 [History] Loratadine [Claritin] 10 mg PO DAILY 11/18/15 [History] MOM Conc [MILK OF MAGNESIA conc] 30 ml PO DAILY PRN 11/18/15 [History] [place]-3/Dha/Epa/Fish Oil [Fish Oil 1,000 mg Softgel] 1,000 mg PO TID 11/18/15 [ History] Chloraseptic Arbon [Chloraseptic] 2 spray MM Q2H PRN 03/01/16 [History] Ciclopirox [Loprox] 1 appl TP 3XW 03/01/16 [History] Dicyclomine [Bentyl] 10 mg PO QID 03/01/16 [History] Lipase/Protease/Amylase [Creon Dr 24,000 Units Capsule] 1 each PO TIDWM [History] Omeprazole [PriLOSEC] 20 mg PO DAILY #30 cap 10/09/16 [Rx] Loperamide [Imodium] 2 mg PO DAILY #60 capsule 03/28/17 [Rx] Betamethasone/Propylene Glyc [Betamethasone Dp Aug 0.05% Lot] 1 appl TP MOWEFR 08/25/17 [History] Furosemide [Lasix] 20 mg PO DAILY PRN 08/25/17 [History] Oxygen 2 l NS AD 08/25/17 [History] Pravastatin Sodium 10 mg PO HS 08/25/17 [History] Simethicone [Gas-X] 160 mg PO BID PRN 08/25/17 [History] metFORMIN [Glucophage] 500 mg PO BID 08/25/17 [History] Lactobacillus [Culturelle] 1 each PO BID cap.radha 08/31/17 [Rx] Aspirin [Lo-Dose Aspirin EC] 81 mg PO DAILY #30 tablet. 09/26/17 [Rx] Calcium Carbonate/Vitamin D3 [Calcium 500 + Vit D 200 Caplet] 1 tab PO BID 12/02 [History] Lipase/Protease/Amylase [Buck Abreu 12,000 Units Capsule] 1 cap PO BID 12/02/17 [ History] Lisinopril [Zestril] 20 mg PO DAILY 12/02/17 [History] Metoprolol [Lopressor] 50 mg PO BID 12/02/17 [History] Multivit-Min/FA/Lycopen/Lutein [A Thru Z Select Multivit Tab] 1 tab PO DAILY 10/16 [History] PARoxetine HCl [Paroxetine HCl] 10 mg PO DAILY 12/02/17 [History] 3 Allergy/AdvReac Type Severity Reaction Status Date / Time Penicillins Allergy Severe Anaphylaxis Verified 12/01/17 15:51 "Mycin meds" Allergy See Uncoded 10/03/17 10:49 Comments ROS unobtainable: due to mental status All Systems: The remainder of the systems were reviewed and are negative Physical Examination - Vital Signs Vital Signs: Initial Vital Signs Temp Pulse Resp BP Pulse Ox 98.0 F 95 18 128/71 94 12/01/17 15:51 12/01/17 15:51 12/01/17 15:51 12/01/17 15:51 12/01/17 15:51 - Constitutional General appearance: comfortable - Neurologic Detailed motor examination: other (The patient has no focal or lateralized deficits. There are no involuntary movements identified. No atrophy is identified.) Detailed sensory examination: other (The specifics of the sensory examination are difficult to ascertain in the patient that has cognitive barriers. However she does withdraw to tactile stim.) Reflexes: Biceps: 1+ (Symmetrically), Triceps: 1+ ("), Brachioradialis: 1+ ("), Patella: 1+ ("), Achilles: 1+ (") Mental Status Examination: awake, alert (The patient is awake and alert, she is minimally verbal however she does make eye contact she does smile she is interactive. She knows that her name is Mary Anne. She does not follow specific commands. She is pleasant not combative.) Cranial nerve examination: PERRL, EOMI, corneal reflexes brisk symmetrically, mastication intact, no facial asymmetry is present Results - Laboratory Findings CBC and BMP: 12/02/17 04:12 12/02/17 04:12 Abnormal lab findings: Abnormal lab results RBC 3.44 M/mcL (3.82-4.97) L 12/02/17 04:12 Hgb 11.1 g/dL (11.5-15.4) L 12/02/17 04:12 Hct 33.6 % (35.3-44.9) L 12/02/17 04:12 Plt Count 114 K/mcL (140-400) L 12/02/17 04:12 Creatinine 0.50 mg/dL (0.60-1.20) L 12/02/17 04:12 Glucose 117 mg/dL (70-105) H 12/02/17 04:12 Total Bilirubin 0.1 mg/dL (0.3-1.0) L 12/01/17 16:46 Triglycerides 196 mg/dL (< 150) H 12/02/17 04:12 VLDL Cholesterol, Calc 39 mg/dL (< 31) H 12/02/17 04:12 HDL Cholesterol 39 mg/dL (40-59) L 12/02/17 04:12 Urine Glucose (UA) 100 mg/dL (Normal) H 12/01/17 16:05 Urine Ketones 40 mg/dL (Negative) H 12/01/17 16:05 Consult Discharge Plan - Plan
--- NOTE | 2017-12-02 08:09 | Internal Med Progress Note ---
<Denae Walker - Last Filed: 12/02/17 12:30> Date of Encounter: 12/02/17 Time of Encounter: 09:21 - Assessment and plan (1) Pneumonia Current Visit: Yes Status: Acute Assessment and plan: Concern for aspiration pneumonia. Levaquin and Flagyl to continue her antibiotics. Blood cultures pending. Speech therapy consult pending. NPO until speech clears the patient. Qualifiers: Pneumonia type: aspiration pneumonia Aspiration pneumonia type: unspecified Laterality: left Lung location: lower lobe of lung Qualified Code(s): J69.0 - Pneumonitis due to inhalation of food and vomit (2) Facial droop Current Visit: Yes Status: Acute Assessment and plan: Unknown if this is new. MRI, echo and carotid duplex pending. Neurology consulted on the patient does not feel this is a primary neurological process. Possible toxic encephalopathy due to underlying pneumonia. (3) Lactic acidosis Current Visit: Yes Status: Acute Assessment and plan: Repeat lactic acid 1.7. Now resolved. Doubt original elevated level due to sepsis. Most likely due to hypovolemia and hypoperfusion. (4) Diabetes mellitus Current Visit: Yes Status: Chronic Assessment and plan: Sliding-scale insulin use. Well controlled at this time. 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 Well controlled at this time. Qualifiers: Hypertension type: essential hypertension Qualified Code(s): I10 - Essential (primary) hypertension - Time Spent With Patient Total time spent is greater than 50% in coordination of care (as documented) at patient's floor/unit and/or counseling patient: - Subjective Interval history: Patient with history of MRDD presented and admitted for concern of left facial droop, lethargy and possible aspiration pneumonia. Patient unable to provide majority of history of present illness. Patient does state she is feeling better today. Denies any complaints at this time. - Constitutional Vitals: Temp Pulse Resp BP Pulse Ox 98.1 F 81 16 126/64 98 12/02/17 07:17 12/02/17 07:17 12/02/17 07:17 12/02/17 07:17 12/02/17 07:17 General appearance: Present: A&O X 1, pleasant, no acute distress - Head Head exam: Present: atraumatic, normal inspection, normocephalic - Eye Eye exam: Present: EOMI, PERRL - ENT ENT exam: Present: mucous membranes dry, normal oropharynx - Respiratory Respiratory exam: Absent: accessory muscle use, respiratory distress Additional comments: Coarse breath sounds throughout - Cardiovascular Cardiovascular exam: Present: RRR. Absent: diastolic murmur, systolic murmur - GI/Abdominal GI/Abdominal exam: Present: soft. Absent: firm, guarding, rebound, rigid, tenderness - Neurological Exam Neurological exam: Present: alert, facial droop (left sided) Internal Medicine: Result - Labs CBC & Chem 7: 12/02/17 04:12 12/02/17 04:12 Labs: Short CBC 12/02/17 Range/Units 04:12 WBC 6.9 (4.3-11.1) K/mcL Hgb 11.1 L (11.5-15.4) g/dL Hct 33.6 L (35.3-44.9) % Plt Count 114 L (140-400) K/mcL BMP 12/02/17 04:12 Sodium 142 Potassium 3.8 Chloride 107 Carbon Dioxide 29 BUN 10 Creatinine 0.50 L Glucose 117 H Calcium 8.7 Consult Discharge Plan - Plan Referrals: Tyson Garcia MD [Primary Care Provider] - <Edwardo Patel - Last Filed: 12/02/17 17:31> Date of Encounter: 12/02/17 - Assessment and plan (1) Pneumonia Current Visit: Yes Status: Acute Qualifiers: Pneumonia type: aspiration pneumonia Aspiration pneumonia type: unspecified Laterality: left Lung location: lower lobe of lung Qualified Code(s): J69.0 - Pneumonitis due to inhalation of food and vomit (2) Diabetes mellitus Current Visit: Yes Status: Chronic Qualifiers: Diabetes mellitus type: type 2 Diabetes mellitus jail insulin use: without jail use Diabetes mellitus complication status: without complication Qualified Code(s): E11.9 - Type 2 diabetes mellitus without complications (3) HTN (hypertension) Current Visit: Yes Status: Chronic Qualifiers: Hypertension type: essential hypertension Qualified Code(s): I10 - Essential (primary) hypertension (4) Lactic acidosis Current Visit: Yes Status: Acute (5) Facial droop Current Visit: Yes Status: Acute (6) Seizure disorder Current Visit: No Status: Chronic - Time Spent With Patient Total time spent is greater than 50% in coordination of care (as documented) at patient's floor/unit and/or counseling patient: - Constitutional Vitals: Temp Pulse Resp BP Pulse Ox 99.7 F H 81 16 140/71 96 12/02/17 15:43 12/02/17 15:43 12/02/17 15:43 12/02/17 15:43 12/02/17 15:43 Internal Medicine: Result - Labs CBC & Chem 7: 12/02/17 04:12 12/02/17 04:12 Labs: Short CBC 12/02/17 Range/Units 04:12 WBC 6.9 (4.3-11.1) K/mcL Hgb 11.1 L (11.5-15.4) g/dL Hct 33.6 L (35.3-44.9) % Plt Count 114 L (140-400) K/mcL BMP 12/02/17 04:12 Sodium 142 Potassium 3.8 Chloride 107 Carbon Dioxide 29 BUN 10 Creatinine 0.50 L Glucose 117 H Calcium 8.7 - Impressions Impressions Echocardiogram Limited Views 12/02/17 09:25 Impressions: LVEF 60%. Normal right ventricular structure and function. No evidence of PFO with agitated saline contrast. Left Ventricular Wall Motion: Rest Echo Findings The basal inferior lateral wall was not visualized. All other wall segments showed normal motion. Findings: Study Quality * Technically adequate exam. ECG Findings * Normal sinus rhythm. Left Ventricle * LVEF 60%. * Asymmetric basal septal hypertrophy. * Normal LV chamber size. Right Ventricle * Normal right ventricular structure and function. Aorta * Normally sized aortic root. Pericardium * There is no pericardial effusion present. IVC * Normal IVC dimensions and inspiratory collapse. Interatrial Septum * No evidence of PFO with agitated saline contrast. Brain MRI 12/02/17 19:08 IMPRESSION: 1. Extensive patient motion limits evaluation. 2. No convincing acute intracranial abnormality. No acute infarct. 3. Moderate global parenchymal volume loss. D/ / Jose Maria Benitez MD / Jose Maria Benitez MD Interpreting Provider: Jose Maria Benitez MD - Attending Attestation I examined this patient and my medical decision-making was reviewed with the Resident Physician on 12/02/17. I agree with the documented findings, disposition and treatment plan as described except to the extent set forth below. Ms Lacey is currently admitted for pneumonia and encephalopathy with concern for CVA. She remains moderate to high risk due to potential for worsening clinical status. Ms Lacey is hungry. To have MRI today. No fever noted. No CP or SOB. Coughing. No abd pain. Exam alert Comfortable Mucus membranes dry Heart not tachy No wheeze abd soft I/P 1. PNA 2. Dysphagia - MBS tomorrow Further diagnoses and plan as above.
[2017-12-02] MEDS: Pantoprazole 40 MG VIAL IVP SCH (08:39)
[2017-12-02] MEDS: Divalproex (24 HR) 500 MG TABLET PO SCH (08:39)
[2017-12-02] MEDS: risperiDONE 0.25 MG TABLET PO SCH ×2 (08:39→21:57)
[2017-12-02] MEDS: Aspirin Enteric Coated 81 MG Tablet PO SCH (08:39)
[2017-12-02] MEDS ORDERED: MOM Conc 10 ML UD.LIQ PO PRN (13:47)
--- NOTE | 2017-12-02 17:22 | Electrocardiograph Report ---
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 : 1945 Requested By: Gayatri Vazquez Order Number: [id number] Reading MD: Aura Roach Measurements Intervals [place] Rate: 93 P: 47 PA: 210 QRS: -18 QRSD: 81 T: 11 QT: 319 QTc: 370 Interpretive Statements SINUS RHYTHM WITH FIRST DEGREE AV BLOCK VOLTAGE CRITERIA FOR LVH [MEETS CRITERIA IN ONE OF: R(aVL), S(V1), R(V5), R(V5/V6) +S(V1)] POSSIBLE ANTERIOR MYOCARDIAL INFARCTION [30 ms Q WAVE IN V3/V4, OR R < 0.2 mV IN V4], PROBABLY OLD INFERIOR MYOCARDIAL INFARCTION [40+ ms Q WAVE AND/OR ST/T ABNORMALITY IN II/aVF], PROBABLY OLD Electronically Signed On 12-02-2017 17:20:30 EDT by Aura Roach
[2017-12-02] MEDS ORDERED: Levofloxacin 750 MG/150 ML 750 MG/150 ML BAG IVPB SCH (18:00)
[2017-12-02] MEDS ORDERED: Insulin LISPRO 300 UNITS/3 ML VIAL SQ SCH (21:00)
[2017-12-02] MEDS: 0.9 % Sodium Chloride 1,000 ML IVC SCH (21:52)
[2017-12-03] MEDS: Ipratropium/Albuterol Neb 3 ML IH SCH ×3 (03:36→15:07)
[2017-12-03] MEDS: *HR* Heparin 5,000 UNIT/ML VIAL SQ SCH ×2 (04:31→15:13)
[2017-12-03] MEDS: MetroNIDAZOLE 500 MG/100 ML 500 MG/100 ML BAG IVPB SCH ×2 (04:31→11:48)
[2017-12-03 04:34] LABS: Basophils % 0.2 %; Eosinophils # 0.2 K/mcL (0.0-0.6); Eosinophils % 2.8 %; Hematocrit 33.5 % (35.3-44.9); Hemoglobin 11.5 g/dL (11.5-15.4); Immature Granulocytes % 0.5 % (0-4); Lymphocytes # 2.4 K/mcL (0.6-4.6); Lymphocytes % 39.8 %; Mean Corpuscular HGB Conc 34.3 g/dL (31.6-35.5); Mean Corpuscular Hemoglobin 33.1 pg (28.0-33.3); Mean Corpuscular Volume 96.5 fL (83.0-100.0); Mean Platelet Volume 9.9 fL (9.4-12.4); Monocytes # 0.7 K/mcL (0.0-1.3); Monocytes % 11.8 %; Neutrophils # 2.7 K/mcL (1.6-8.9); Platelet Count 125 K/mcL (140-400); Red Blood Count 3.47 M/mcL (3.82-4.97); Segmented Neutrophils % 44.9 %
[2017-12-03 04:45] LABS: BUN/Creatinine Ratio 11 (6-26); Blood Urea Nitrogen 6 mg/dL (8-23); Calcium 8.5 mg/dL (8.6-10.3); Carbon Dioxide 24 mEq/L (23-29); Chloride 111 mEq/L (98-107); Glucose 157 mg/dL (70-105); Osmolality,Calculated 297 (280-300); Potassium 4.1 mEq/L (3.5-5.1); Sodium 143 mEq/L (136-145); eGFR For African Americans > 60 (> 60); eGFR For Non-African Americans > 60 (> 60)
[2017-12-03] MEDS: Pantoprazole 40 MG VIAL IVP SCH (07:58)
[2017-12-03] MEDS: Insulin LISPRO 300 UNITS/3 ML VIAL SQ SCH ×3 (07:58→17:07)
[2017-12-03] MEDS: risperiDONE 0.25 MG TABLET PO SCH (07:59)
[2017-12-03] MEDS: Divalproex (24 HR) 500 MG TABLET PO SCH (08:00)
[2017-12-03] MEDS: Aspirin Enteric Coated 81 MG Tablet PO SCH (08:00)
[2017-12-03] MEDS ORDERED: Cholecalciferol (D-3) 1,000 UNIT TABLET PO SCH (09:00)
[2017-12-03] MEDS ORDERED: Lisinopril 20 MG TABLET PO SCH (09:00)
--- NOTE | 2017-12-03 16:01 | Internal Med Progress Note ---
<Denae Walker - Last Filed: 12/03/17 15:58> Date of Encounter: 12/03/17 Time of Encounter: 15:58 - Assessment and plan (1) Pneumonia Current Visit: Yes Status: Acute Assessment and plan: Concern for aspiration pneumonia. Levaquin and Flagyl to continue her antibiotics. Blood cultures pending. Barium swallow showed Swallowing mechanism grossly within normal limits without evidence of aspiration. Qualifiers: Pneumonia type: aspiration pneumonia Aspiration pneumonia type: unspecified Laterality: left Lung location: lower lobe of lung Qualified Code(s): J69.0 - Pneumonitis due to inhalation of food and vomit (2) Facial droop Current Visit: Yes Status: Acute Assessment and plan: Unknown if this is new. MRI, echo and carotid duplex all within normal limits. Neurology consulted on the patient does not feel this is a primary neurological process. Possible toxic encephalopathy due to underlying pneumonia. (3) Lactic acidosis Current Visit: Yes Status: Acute Assessment and plan: Repeat lactic acid 1.7. Now resolved. Doubt original elevated level due to sepsis. Most likely due to hypovolemia and hypoperfusion. (4) Diabetes mellitus Current Visit: Yes Status: Chronic Assessment and plan: Sliding-scale insulin use. Well controlled at this time. Qualifiers: Diabetes mellitus type: type 2 Diabetes mellitus fdc insulin use: without emt intermediate use Diabetes mellitus complication status: without complication Qualified Code(s): E11.9 - Type 2 diabetes mellitus without complications (5) HTN (hypertension) Current Visit: Yes Status: Chronic Assessment and plan: Continue home medications. Well controlled at this time. Qualifiers: Hypertension type: essential hypertension Qualified Code(s): I10 - Essential (primary) hypertension - Time Spent With Patient Total time spent is greater than 50% in coordination of care (as documented) at patient's floor/unit and/or counseling patient: - Subjective Interval history: Patient with history of MRDD unable to provide majority of history of present illness. Patient does state she is feeling better today. Denies any complaints at this time. - Constitutional Vitals: Temp Pulse Resp BP Pulse Ox 97.7 F 71 14 129/109 99 12/03/17 07:22 12/03/17 11:01 12/03/17 11:01 12/03/17 11:01 12/03/17 11:01 General appearance: Present: A&O X 1, pleasant, no acute distress - Head Head exam: Present: atraumatic, normal inspection, normocephalic - Respiratory Respiratory exam: Present: CTAB. Absent: accessory muscle use, respiratory distress - Cardiovascular Cardiovascular exam: Present: RRR - GI/Abdominal GI/Abdominal exam: Present: soft. Absent: rebound, rigid, tenderness - Neurological Exam Neurological exam: Present: facial droop Internal Medicine: Result - Labs CBC & Chem 7: 12/03/17 04:21 12/03/17 04:21 Labs: Short CBC 12/03/17 Range/Units 04:21 WBC 6.1 (4.3-11.1) K/mcL Hgb 11.5 (11.5-15.4) g/dL Hct 33.5 L (35.3-44.9) % Plt Count 125 L (140-400) K/mcL Neutrophils # 2.7 (1.6-8.9) K/mcL BMP 12/03/17 04:21 Sodium 143 Potassium 4.1 Chloride 111 H Carbon Dioxide 24 BUN 6 L Creatinine 0.57 L Glucose 157 H Calcium 8.5 L - Impressions Impressions Videofluoroscopic Swallow 12/03/17 00:01 IMPRESSION: Swallowing mechanism grossly within normal limits without evidence of aspiration. Please see separate speech pathology report for full discussion of findings and recommendations. D/ / Eleonora Villa MD / Eleonora Villa MD Interpreting Provider: Eleonora Villa MD Consult Discharge Plan - Plan Instructions: Metronidazole (By mouth), Levofloxacin (By mouth), Pneumonia (DC) Additional Instructions: Please continue your home medications. Please add the 2 new antibiotics for the next 6 days to treat your aspiration pneumonia. Please follow-up with her primary care physician within a week. Please return for any new or worsening symptoms. Continue home oxygen through [facility]. Referrals: Tyson Garcia MD [Primary Care Provider] - 12/06/17 10:15 am Prescriptions: levoFLOXacin [Levaquin] 750 mg PO Q24H #6 tablet metroNIDAZOLE [Flagyl] 500 mg PO TID #18 tablet <Edwardo Patel - Last Filed: 12/03/17 17:50> Date of Encounter: 12/03/17 - Assessment and plan (1) Pneumonia Current Visit: Yes Status: Acute Qualifiers: Pneumonia type: aspiration pneumonia Aspiration pneumonia type: unspecified Laterality: left Lung location: lower lobe of lung Qualified Code(s): J69.0 - Pneumonitis due to inhalation of food and vomit (2) Diabetes mellitus Current Visit: Yes Status: Chronic Qualifiers: Diabetes mellitus type: type 2 Diabetes mellitus fdc insulin use: without fdc use Diabetes mellitus complication status: without complication Qualified Code(s): E11.9 - Type 2 diabetes mellitus without complications (3) HTN (hypertension) Current Visit: Yes Status: Chronic Qualifiers: Hypertension type: essential hypertension Qualified Code(s): I10 - Essential (primary) hypertension (4) Lactic acidosis Current Visit: Yes Status: Resolved (5) Facial droop Current Visit: Yes Status: Resolved (6) Seizure disorder Current Visit: No Status: Chronic - Time Spent With Patient Total time spent is greater than 50% in coordination of care (as documented) at patient's floor/unit and/or counseling patient: - Constitutional Vitals: Temp Pulse Resp BP Pulse Ox 97.6 F 100 17 151/67 93 12/03/17 16:25 12/03/17 16:25 12/03/17 16:25 12/03/17 16:25 12/03/17 16:25 Internal Medicine: Result - Labs CBC & Chem 7: 12/03/17 04:21 12/03/17 04:21 Labs: Short CBC 12/03/17 Range/Units 04:21 WBC 6.1 (4.3-11.1) K/mcL Hgb 11.5 (11.5-15.4) g/dL Hct 33.5 L (35.3-44.9) % Plt Count 125 L (140-400) K/mcL Neutrophils # 2.7 (1.6-8.9) K/mcL BMP 12/03/17 04:21 Sodium 143 Potassium 4.1 Chloride 111 H Carbon Dioxide 24 BUN 6 L Creatinine 0.57 L Glucose 157 H Calcium 8.5 L - Impressions Impressions Videofluoroscopic Swallow 12/03/17 00:01 IMPRESSION: Swallowing mechanism grossly within normal limits without evidence of aspiration. Please see separate speech pathology report for full discussion of findings and recommendations. D/ / Eleonora Villa MD / Eleonora Villa MD Interpreting Provider: Eleonora Villa MD - Attending Attestation Please see discharge summary of this date.
--- NOTE | 2017-12-03 16:14 | Discharge Summary ---
<Denae Walker - Last Filed: 12/03/17 16:09> Date of Encounter: 12/03/17 Time of Encounter: 16:09 - Discharge Diagnosis (1) Pneumonia Priority: Primary Status: Acute Qualifiers: Pneumonia type: aspiration pneumonia Aspiration pneumonia type: unspecified Laterality: left Lung location: lower lobe of lung Qualified Code(s): J69.0 - Pneumonitis due to inhalation of food and vomit (2) Facial droop Priority: Secondary Status: Acute (3) Lactic acidosis Priority: Secondary Status: Acute (4) Diabetes mellitus Priority: Secondary Status: Chronic Qualifiers: Diabetes mellitus type: type 2 Diabetes mellitus detention insulin use: without longshore equipment operator use Diabetes mellitus complication status: without complication Qualified Code(s): E11.9 - Type 2 diabetes mellitus without complications (5) HTN (hypertension) Priority: Secondary Status: Chronic Qualifiers: Hypertension type: essential hypertension Qualified Code(s): I10 - Essential (primary) hypertension Hospital course: Ms. Lacey is a 72 year old female with a past medical history of MRDD, diabetes type 2 not insulin-dependent, chronic respiratory failure using 2 L continuously, was transferred to the ER as she has been lethargic since 9 AM, having altered mental status, her animal caretaker says that she is being more sleepy and noticed a left facial droop since the morning. Patient is not able to provide any history. chest x-ray shows a possible left small pleural effusion, and also an opacity that is compatible with possible pneumonia. Concern for aspiration pneumonia. Flagyl and Levaquin were started. CT scan of the head does not show any abnormality. MRI of the brain within normal limits. Echo along with bilateral carotid duplex scans were completed which were also within normal limits. - Time Spent with Patient Total time spent providing and/or coordinating discharge services: - Discharge Medications Prescriptions: levoFLOXacin [Levaquin] 750 mg PO Q24H #6 tablet metroNIDAZOLE [Flagyl] 500 mg PO TID #18 tablet Home Medications: risperiDONE [Risperidone] 0.5 mg PO BID #0 03/02/15 [History] Acetaminophen [Tylenol] 1,000 mg PO Q4H PRN 11/18/15 [History] Alendronate Sodium [Fosamax] 70 mg PO WE 11/18/15 [History] Bismuth Subsalicylate [PEPTO-BISMOL (262mg/15mL) Susp] 15 ml PO Q4H PRN [History] Cholecalciferol (D-3) [Vitamin D] 2,000 unit PO DAILY 11/18/15 [History] Divalproex (24 HR) [Depakote ER (24 HR)] 1,000 mg PO DAILY 11/18/15 [History] GuaiFENesin/Dextromethorphan [Robitussin/Dm] 10 ml PO BID PRN 11/18/15 [History] Haloperidol 0.5 mg PO BID PRN 11/18/15 [History] Loratadine [Claritin] 10 mg PO DAILY 11/18/15 [History] MOM Conc [MILK OF MAGNESIA conc] 30 ml PO DAILY PRN 11/18/15 [History] [place]-3/Dha/Epa/Fish Oil [Fish Oil 1,000 mg Softgel] 1,000 mg PO TID 11/18/15 [ History] Chloraseptic [place] [Chloraseptic] 2 spray MM Q2H PRN 03/01/16 [History] Ciclopirox [Loprox] 1 appl TP 3XW 03/01/16 [History] Dicyclomine [Bentyl] 10 mg PO QID 03/01/16 [History] Lipase/Protease/Amylase [Creon Dr 24,000 Units Capsule] 1 each PO TIDWM [History] Omeprazole [PriLOSEC] 20 mg PO DAILY #30 cap 10/09/16 [Rx] Loperamide [Imodium] 2 mg PO DAILY #60 capsule 03/28/17 [Rx] Betamethasone/Propylene Glyc [Betamethasone Dp Aug 0.05% Lot] 1 appl TP MOWEFR 08/25/17 [History] Furosemide [Lasix] 20 mg PO DAILY PRN 08/25/17 [History] Oxygen 2 l NS AD 08/25/17 [History] Pravastatin Sodium 10 mg PO HS 08/25/17 [History] Simethicone [Gas-X] 160 mg PO BID PRN 08/25/17 [History] metFORMIN [Glucophage] 500 mg PO BID 08/25/17 [History] Lactobacillus [Culturelle] 1 each PO BID cap.sprink 08/31/17 [Rx] Aspirin [Lo-Dose Aspirin EC] 81 mg PO DAILY #30 tablet. 09/26/17 [Rx] Calcium Carbonate/Vitamin D3 [Calcium 500 + Vit D 200 Caplet] 1 tab PO BID 12/02 [History] Lipase/Protease/Amylase [Buck Abreu 12,000 Units Capsule] 1 cap PO BID 12/02/17 [ History] Lisinopril [Zestril] 20 mg PO DAILY 12/02/17 [History] Metoprolol [Lopressor] 50 mg PO BID 12/02/17 [History] Multivit-Min/FA/Lycopen/Lutein [A Thru Z Select Multivit Tab] 1 tab PO DAILY 10/16 [History] PARoxetine HCl [Paroxetine HCl] 10 mg PO DAILY 12/02/17 [History] levoFLOXacin [Levaquin] 750 mg PO Q24H #6 tablet 12/03/17 [Rx] metroNIDAZOLE [Flagyl] 500 mg PO TID #18 tablet 12/03/17 [Rx] Allergies/Adverse Reactions: 3 Allergy/AdvReac Type Severity Reaction Status Date / Time Penicillins Allergy Severe Anaphylaxis Verified 12/01/17 15:51 "Mycin meds" Allergy See Uncoded 10/03/17 10:49 Comments Date of admission: 12/01/17 19:00 Primary care physician: Tyson Garcia MD Consults: 12/01/17 19:34 Consult to Laboratory Equipment Cleaner [CONS] Routine Reason for SW Consult: MRDD Discharging clinician: Denae Walker Anticipated date of discharge: 12/03/17 - Constitutional Vitals: Temp Pulse Resp BP Pulse Ox 97.7 F 71 16 129/109 97 12/03/17 07:22 12/03/17 11:01 12/03/17 15:07 12/03/17 11:01 12/03/17 15:07 General appearance: Present: A&O X 1, pleasant, no acute distress - Respiratory Respiratory exam: Present: CTAB. Absent: accessory muscle use, respiratory distress - Cardiovascular Cardiovascular exam: Present: RRR - GI/Abdominal GI/Abdominal exam: Present: soft. Absent: rebound, rigid, tenderness - Extremities Exam Extremities exam: Present: warm. Absent: tenderness - Neurological Exam Neurological exam: Present: facial droop - Patient Status Disposition: Home, Self-Care Condition: Good Functional capacity at discharge: uses cane/walker Overall status at discharge: patient is back to baseline - Discharge Instructions Instructions: Metronidazole (By mouth), Levofloxacin (By mouth), Pneumonia (DC) Follow Up With: Tyson Garcia MD [Primary Care Provider] - 12/06/17 10:15 am Forms: ED Satisfaction Letter Additional Instructions: Please continue your home medications. Please add the 2 new antibiotics for the next 6 days to treat your aspiration pneumonia. Please follow-up with her primary care physician within a week. Please return for any new or worsening symptoms. Continue home oxygen through [facility]. - Diet and Activity Activity: resume usual activities as tolerated Diet: advance to your usual diet <JorgeEdwardo Harshad - Last Filed: 12/03/17 17:49> - NOTES TO OUTPATIENT PROVIDER Notes to Outpatient Provider: Admitted with aspiration pneumonia. Passed MBS. Completing abx. Date of Encounter: 12/03/17 - Discharge Diagnosis (1) Pneumonia Status: Acute Qualifiers: Pneumonia type: aspiration pneumonia Aspiration pneumonia type: unspecified Laterality: left Lung location: lower lobe of lung Qualified Code(s): J69.0 - Pneumonitis due to inhalation of food and vomit (2) Diabetes mellitus Status: Chronic Qualifiers: Diabetes mellitus type: type 2 Diabetes mellitus longshore equipment operator insulin use: without detention use Diabetes mellitus complication status: without complication Qualified Code(s): E11.9 - Type 2 diabetes mellitus without complications (3) HTN (hypertension) Status: Chronic Qualifiers: Hypertension type: essential hypertension Qualified Code(s): I10 - Essential (primary) hypertension (4) Lactic acidosis Status: Resolved (5) Facial droop Status: Resolved (6) Seizure disorder Priority: Secondary Status: Chronic Hospital course: Ms. Lacey is a 72 year old female - Time Spent with Patient Total time spent providing and/or coordinating discharge services: Date of admission: 12/01/17 19:00 Primary care physician: Tyson Garcia MD Consults: 12/01/17 19:34 Consult to Laboratory Equipment Cleaner [CONS] Routine Reason for SW Consult: MRDD - Constitutional Vitals: Temp Pulse Resp BP Pulse Ox 97.6 F 100 17 151/67 93 12/03/17 16:25 12/03/17 16:25 12/03/17 16:25 12/03/17 16:25 12/03/17 16:25 - Attending Attestation I examined this patient and my medical decision-making was reviewed with the Resident Physician on 12/03/17. I agree with the documented findings, disposition and treatment plan as described except to the extent set forth below. Ms Lacey has been admitted for acute aspiration pneumonia. She has passed MBS. She has clinically improved with treatment. At this time she is afebrile and ready for discharge. Exam alert Comfortable Mucus membranes moist. Heart reg Scant rhonchi Plan D/C today.
[2017-12-03 16:27] VITALS: BP 151/67
[2017-12-03] MEDS ORDERED: levoFLOXacin 750 MG TABLET PO SCH (18:00)
[2017-12-03] MEDS ORDERED: metroNIDAZOLE 500 MG TABLET PO SCH (21:00)
== END 2017-12-03 17:57 | disposition home or self-care (01) | DRG 177 ==
LOC: 2NENU 15:48 → EMEROO 15:48 → SUATTDRO 19:00 → 2NENU 19:03
PROVIDERS: ADMIT Internal Medicine; ATTEND Internal Medicine

== ENCOUNTER 2018-01-30 07:28 | Inpatient (IN) ==
--- NOTE | 2018-01-30 08:21 | Emergency Department Note ---
Disposition Clinical Impression: Elevated lactic acid level, Hypoxia Pneumonia Qualifiers: Pneumonia type: due to unspecified organism Laterality: left Lung location: lower lobe of lung Qualified Code(s): J18.1 - Lobar pneumonia, unspecified organism Disposition: Admitted As Inpatient Condition: Good Forms: ED Satisfaction Letter General Adult HPI - General Chief complaint: ED Dizziness Stated complaint: PAULSON,dizziness Time Seen by Provider: 01/30/18 07:32 Source: EMS Mode of arrival: ambulatory Limitations: no limitations Nursing Notes Reviewed: Yes Vital Signs Reviewed: Yes - History of Present Illness HPI Narrative: Patient is deaf. History of 3 L of O2 with 4 L on ambulation. Was being taken care of by home health nurse when she had oxygen saturation while trying to just stand up in the shower. Oxygen dropped to 88%. She was turned up to 4 L. Upon ambulation to the kitchen she dropped to 85%. She has been more sleepy than usual. Complained of headache and dizziness that has now resolved. Patient does have history of MRDD and history is limited. She is not complaining of chest pain or abdominal pain or headache at this time. She does have rhonchi on exam. Some medications include divalproex, aspirin, metoprolol, lisinopril, loperamide , fish oil, piroxicam, pravastatin, Creon, metformin, risperidone, alendronate, furosemide, haloperidol. Pain Scale: 0 - Related Data Home Medications Medication Instructions Recorded Confirmed risperiDONE [Risperidone] 0.5 mg PO BID #0 03/02/15 12/02/17 Acetaminophen [Tylenol] 1,000 mg PO Q4H PRN 11/18/15 12/02/17 Alendronate Sodium [Fosamax] 70 mg PO WE 11/18/15 12/02/17 Bismuth Subsalicylate 15 ml PO Q4H PRN 11/18/15 12/02/17 [PEPTO-BISMOL (262mg/15mL) Susp] Cholecalciferol (D-3) [Vitamin D] 2,000 unit PO DAILY 11/18/15 12/02/17 Divalproex (24 HR) [Depakote ER 1,000 mg PO DAILY 11/18/15 12/02/17 (24 HR)] GuaiFENesin/Dextromethorphan 10 ml PO BID PRN 11/18/15 12/02/17 [Robitussin/Dm] Haloperidol 0.5 mg PO BID PRN 11/18/15 12/02/17 Loratadine [Claritin] 10 mg PO DAILY 11/18/15 12/02/17 MOM Conc [MILK OF MAGNESIA conc] 30 ml PO DAILY PRN 11/18/15 12/02/17 [place]-3/Dha/Epa/Fish Oil [Fish Oil 1,000 mg PO TID 11/18/15 12/02/17 1,000 mg Softgel] Chloraseptic [place] [Chloraseptic] 2 spray MM Q2H PRN 03/01/16 12/02/17 Ciclopirox [Loprox] 1 appl TP 3XW 03/01/16 12/02/17 Dicyclomine [Bentyl] 10 mg PO QID 03/01/16 12/02/17 Lipase/Protease/Amylase [Buck Abreu 1 each PO TIDWM 04/05/16 12/02/17 24,000 Units Capsule] Betamethasone/Propylene Glyc 1 appl TP MOWEFR 08/25/17 12/02/17 [Betamethasone Dp Aug 0.05% Lot] Furosemide [Lasix] 20 mg PO DAILY PRN 08/25/17 12/02/17 Oxygen 2 l NS AD 08/25/17 12/02/17 Pravastatin Sodium 10 mg PO HS 08/25/17 12/02/17 Simethicone [Gas-X] 160 mg PO BID PRN 08/25/17 12/02/17 metFORMIN [Glucophage] 500 mg PO BID 08/25/17 12/02/17 Calcium Carbonate/Vitamin D3 1 tab PO BID 12/02/17 12/02/17 [Calcium 500 + Vit D 200 Caplet] Lipase/Protease/Amylase [Buck Abreu 1 cap PO BID 12/02/17 12/02/17 12,000 Units Capsule] Lisinopril [Zestril] 20 mg PO DAILY 12/02/17 12/02/17 Metoprolol [Lopressor] 50 mg PO BID 12/02/17 12/02/17 Multivit-Min/FA/Lycopen/Lutein [A 1 tab PO DAILY 12/02/17 12/02/17 Thru Z Select Multivit Tab] PARoxetine HCl [Paroxetine HCl] 10 mg PO DAILY 12/02/17 12/02/17 Previous Rx's Medication Instructions Recorded Omeprazole [PriLOSEC] 20 mg PO DAILY #30 cap 10/09/16 Loperamide [Imodium] 2 mg PO DAILY #60 capsule 03/28/17 Lactobacillus [Culturelle] 1 each PO BID cap.sprink 08/31/17 Aspirin [Lo-Dose Aspirin EC] 81 mg PO DAILY #30 tablet. 09/26/17 levoFLOXacin [Levaquin] 750 mg PO Q24H #6 tablet 12/03/17 metroNIDAZOLE [Flagyl] 500 mg PO TID #18 tablet 12/03/17 Allergies Allergy/AdvReac Type Severity Reaction Status Date / Time Penicillins Allergy Severe Anaphylaxis Verified 12/01/17 15:51 "Mycin meds" Allergy See Uncoded 10/03/17 10:49 Comments Review of Systems: Patient has limited ability to communicate at baseline. Denies headache chest pain or abdominal pain at this time. Caretakers report positive hypoxia at home to 85% with mild exertion on her home oxygen. 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 - General General appearance: alert, in no apparent distress Course - Reevaluation(s) Reevaluation #1: Patient with mild leukocytosis. Significant change from previous white blood cell count of 6.5->11.7. The patient chest x-ray is significant only worse from previous. Concern for left-sided effusion versus pneumonia. The patient' s lactic acid is 4. She did respond to initial 500 mL bolus with improvement. She will now receive a 1000 cc bolus. She does have a history of CHF and is not hypotensive so fluids are currently being limited based on tolerance. Vital Signs Temperature 97.9 F 01/30/18 07:32 Pulse Rate 86 01/30/18 07:32 Respiratory Rate 15 01/30/18 07:32 Blood Pressure 114/67 01/30/18 07:32 O2 Sat by Pulse Oximetry 97 01/30/18 07:32 Temperature 97.9 F 01/30/18 07:32 Pulse Rate 77 01/30/18 09:00 Respiratory Rate 20 01/30/18 09:00 Blood Pressure 107/47 01/30/18 09:00 O2 Sat by Pulse Oximetry 97 01/30/18 09:00 Oxygen Delivery Oxygen Delivery Nasal Cannula Medical Decision Making - Medical Records Medical records reviewed: Yes I reviewed the patient's medical records. - Lab Data Lab results reviewed: Yes I reviewed the patient's lab results. Result diagrams: 01/30/18 08:30 01/30/18 08:30 Lab Results 01/30/18 01/30/18 01/30/18 Range/Units 07:53 08:16 08:30 WBC 11.7 H (4.3-11.1) K/mcL RBC 4.22 (3.82-4.97) M/mcL Hgb 13.8 (11.5-15.4) g/dL Hct 40.7 (35.3-44.9) % MCV 96.4 (83.0-100.0) fL MCH 32.7 (28.0-33.3) pg MCHC 33.9 (31.6-35.5) g/dL RDW 11.9 (11.5-14.5) % Plt Count 144 (140-400) K/mcL MPV 10.1 (9.4-12.4) fL Immature Gran % 0.4 (0-4) % Seg Neutrophils % 78.2 % Lymphocytes % 13.3 % Monocytes % 7.8 % Eosinophils % 0.1 % Basophils % 0.2 % Neutrophils # 9.2 H (1.6-8.9) K/mcL Lymphocytes # 1.6 (0.6-4.6) K/mcL Monocytes # 0.9 (0.0-1.3) K/mcL Eosinophils # 0.0 (0.0-0.6) K/mcL Basophils # 0.0 (0.0-0.2) K/mcL Immature Plt Fraction 4.0 (1.1-6.1) % Sodium (136-145) mEq/L Potassium (3.5-5.1) mEq/L Chloride (98-107) mEq/L Carbon Dioxide (23-29) mEq/L BUN (8-23) mg/dL Creatinine (0.60-1.20) mg/dL Est GFR ( Amer) (> 60) Est GFR (Non-Af Amer) (> 60) BUN/Creatinine Ratio (6-26) Glucose (70-105) mg/dL POC Glucose 224 H (70-99) mg/dL Calculated Osmolality (280-300) Lactic Acid (0.5-2.2) mmol/L Calcium (8.6-10.3) mg/dL Magnesium (1.6-2.6) mg/dL Troponin I (< 0.04) ng/mL Urine Color Yellow (Yellow) Urine Clarity Clear (Clear) Urine pH 6.5 (5.0-8.0) pH Units Ur Specific [place] 1.019 (1.010-1.025) Urine Protein Trace (Neg-Trace) mg/dL Urine Glucose (UA) 250 H (Normal) mg/dL Urine Ketones 40 H (Negative) mg/dL Urine Blood Negative (Negative) Urine Nitrite Negative (Negative) Urine Bilirubin Negative (Negative) Urine Urobilinogen Normal (Normal) mg/dL Ur Leukocyte Esterase Moderate H (Negative) Urine Microscopic RBC Test Not Performed Urine Microscopic WBC 15-30 H (0-3) per hpf Ur Squamous Epith Cells Moderate H (None-Few) per lpf Urine Bacteria None Seen (None-Few) per hpf Hyaline Casts None Seen (None-Few) per lpf Ur Culture Indicated? YES A (NO) 01/30/18 01/30/18 Range/Units 08:30 08:30 WBC (4.3-11.1) K/mcL RBC (3.82-4.97) M/mcL Hgb (11.5-15.4) g/dL Hct (35.3-44.9) % MCV (83.0-100.0) fL MCH (28.0-33.3) pg MCHC (31.6-35.5) g/dL RDW (11.5-14.5) % Plt Count (140-400) K/mcL MPV (9.4-12.4) fL Immature Gran % (0-4) % Seg Neutrophils % % Lymphocytes % % Monocytes % % Eosinophils % % Basophils % % Neutrophils # (1.6-8.9) K/mcL Lymphocytes # (0.6-4.6) K/mcL Monocytes # (0.0-1.3) K/mcL Eosinophils # (0.0-0.6) K/mcL Basophils # (0.0-0.2) K/mcL Immature Plt Fraction (1.1-6.1) % Sodium 137 (136-145) mEq/L Potassium 4.3 (3.5-5.1) mEq/L Chloride 98 (98-107) mEq/L Carbon Dioxide 27 (23-29) mEq/L BUN 13 (8-23) mg/dL Creatinine 0.61 (0.60-1.20) mg/dL Est GFR ( Amer) > 60 (> 60) Est GFR (Non-Af Amer) > 60 (> 60) BUN/Creatinine Ratio 21 (6-26) Glucose 202 H (70-105) mg/dL POC Glucose (70-99) mg/dL Calculated Osmolality 290 (280-300) Lactic Acid 4.7 H* (0.5-2.2) mmol/L Calcium 10.1 (8.6-10.3) mg/dL Magnesium 1.3 L (1.6-2.6) mg/dL Troponin I < 0.03 (< 0.04) ng/mL Urine Color (Yellow) Urine Clarity (Clear) Urine pH (5.0-8.0) pH Units Ur Specific [place] (1.010-1.025) Urine Protein (Neg-Trace) mg/dL Urine Glucose (UA) (Normal) mg/dL Urine Ketones (Negative) mg/dL Urine Blood (Negative) Urine Nitrite (Negative) Urine Bilirubin (Negative) Urine Urobilinogen (Normal) mg/dL Ur Leukocyte Esterase (Negative) Urine Microscopic RBC Urine Microscopic WBC (0-3) per hpf Ur Squamous Epith Cells (None-Few) per lpf Urine Bacteria (None-Few) per hpf Hyaline Casts (None-Few) per lpf Ur Culture Indicated? (NO) - Radiology Data Radiology results reviewed: Yes I reviewed the patient's radiology results. - EKG Data EKG #1 EKG attestation: Yes I reviewed and interpreted this EKG. EKG results narrative: EKG shows sinus rhythm with a ventricular rate of 85. OR interval 217. QRS 92. QTC 404. Patient has no significant ST elevations or depressions. There is no significant changes from previous EKG of 12/01/17.
[2018-01-30 08:36] LABS: Bacteria,Urine None Seen per hpf (None-Few); Bilirubin,Urine Negative (Negative); Blood,Urine Negative (Negative); Clarity,Urine Clear (Clear); Color,Urine Yellow (Yellow); Glucose,Urine (UA) 250 mg/dL (Normal); Hyaline Casts,Urine None Seen per lpf (None-Few); Leukocyte Esterase,Urine Moderate (Negative); Nitrite,Urine Negative (Negative); PH,Urine 6.5 pH Units (5.0-8.0); Protein,Urine Trace mg/dL (Neg-Trace); Specific Gravity,Urine 1.019 (1.010-1.025); Squamous Epithelial Cell,Urine Moderate per lpf (None-Few); Urobilinogen,Urine Normal (Normal)
[2018-01-30 08:37] LABS: Ketones,Urine 40 mg/dL (Negative)
[2018-01-30 08:45] LABS: WBC,Urine 15-30 per hpf (0-3)
[2018-01-30 08:46] LABS: Basophils % 0.2 %; Eosinophils % 0.1 %; Hematocrit 40.7 % (35.3-44.9); Hemoglobin 13.8 g/dL (11.5-15.4); Immature Granulocytes % 0.4 % (0-4); Lymphocytes # 1.6 K/mcL (0.6-4.6); Lymphocytes % 13.3 %; Mean Corpuscular HGB Conc 33.9 g/dL (31.6-35.5); Mean Corpuscular Hemoglobin 32.7 pg (28.0-33.3); Mean Corpuscular Volume 96.4 fL (83.0-100.0); Mean Platelet Volume 10.1 fL (9.4-12.4); Monocytes # 0.9 K/mcL (0.0-1.3); Monocytes % 7.8 %; Neutrophils # 9.2 K/mcL (1.6-8.9); Platelet Count 144 K/mcL (140-400); Red Blood Count 4.22 M/mcL (3.82-4.97); Red Cell Distribution Width 11.9 % (11.5-14.5); Segmented Neutrophils % 78.2 %
[2018-01-30 09:05] LABS: BUN/Creatinine Ratio 21 (6-26); Blood Urea Nitrogen 13 mg/dL (8-23); Calcium 10.1 mg/dL (8.6-10.3); Carbon Dioxide 27 mEq/L (23-29); Chloride 98 mEq/L (98-107); Glucose 202 mg/dL (70-105); Magnesium 1.3 mg/dL (1.6-2.6); Osmolality,Calculated 290 (280-300); Potassium 4.3 mEq/L (3.5-5.1); Sodium 137 mEq/L (136-145); Troponin I < 0.03 ng/mL (< 0.04); eGFR For Non-African Americans > 60 (> 60)
[2018-01-30] MEDS ORDERED: 0.9 % Sodium Chloride 500 ML IVC ONE (09:06)
[2018-01-30] MEDS ORDERED: 0.9 % Sodium Chloride 1,000 ML IVC ONE (09:54)
[2018-01-30] MEDS ORDERED: Levofloxacin 750 MG/150 ML 750 MG/150 ML BAG IVPB ONE (09:55)
[2018-01-30] MEDS ORDERED: Azithromycin 500 MG in D5% in Water 250 ML IVPB ONE (09:56)
[2018-01-30] MEDS ORDERED: Aminoglycoside Consult 1 EACH MC ONE (12:59)
--- NOTE | 2018-01-30 17:22 | Internal Med History&Physical ---
Date of Encounter: 01/30/18 Time of Encounter: 11:00 Internal Medicine - H&P: HPI Chief complaint: Hypoxia Admitted From: [facility]term [facility] Facility History of present illness: Patient is a 72-year-old female with past medical history significant for being , hypertension, hyperlipidemia, diabetes and seizures who presents to the ER on 01/30/18 due to acute on chronic hypoxic respiratory failure. Patient not able to give history due to being deaf and not able to communicate. Per EMR review apparently patient was at the shelter and was found to be hypoxic after standing up in the shower with her O2 sats dropping to 80%. Upon ambulation she was found to have O2 sat 85%. Patient was brought into the ER for evaluation. In the ER, patient was found to have O2 sats in the upper 90s on 3 L of nasal cannula. In the ER, CT of the head showed no acute findings and chest x-ray showed left basilar opacity suspicious for infiltrates. Patient will be admitted to medical surgical floor for HAP management. Past Med Surg Social Fam HX - Past Medical History Medical history: cancer, diabetes, GERD, hyperlipidemia, hypertension, seizures , other Additional medical history: deaf Psychiatric history: anxiety, depression, other - Past Surgical History Surgical History: breast surgery, cholecystectomy, other Additional surgical history: low anterior colon resection, masectomy - Social History Smoking Status: Never smoker Smokeless Tobacco Status: No Alcohol use: none Drug use: none - Family History Father Living Status: Mother Living Status: Still Living Internal Medicine - H&P: Meds risperiDONE [Risperidone] 0.5 mg PO BID #0 03/02/15 [History] Acetaminophen [Tylenol] 1,000 mg PO Q4H PRN 11/18/15 [History] Alendronate Sodium [Fosamax] 70 mg PO WE 11/18/15 [History] Bismuth Subsalicylate [PEPTO-BISMOL (262mg/15mL) Susp] 15 ml PO Q4H PRN [History] Cholecalciferol (D-3) [Vitamin D] 2,000 unit PO DAILY 11/18/15 [History] Divalproex (24 HR) [Depakote ER (24 HR)] 1,000 mg PO DAILY 11/18/15 [History] GuaiFENesin/Dextromethorphan [Robitussin/Dm] 10 ml PO BID PRN 11/18/15 [History] Haloperidol 0.5 mg PO BID PRN 11/18/15 [History] Loratadine [Claritin] 10 mg PO DAILY 11/18/15 [History] MOM Conc [MILK OF MAGNESIA conc] 30 ml PO DAILY PRN 11/18/15 [History] [place]-3/Dha/Epa/Fish Oil [Fish Oil 1,000 mg Softgel] 1,000 mg PO TID 11/18/15 [ History] Chloraseptic [place] [Chloraseptic] 2 spray MM Q2H PRN 03/01/16 [History] Ciclopirox [Loprox] 1 appl TP 3XW 03/01/16 [History] Dicyclomine [Bentyl] 10 mg PO QID 03/01/16 [History] Lipase/Protease/Amylase [Buck Abreu 24,000 Units Capsule] 1 each PO TIDWM [History] Omeprazole [PriLOSEC] 20 mg PO DAILY #30 cap 10/09/16 [Rx] Loperamide [Imodium] 2 mg PO DAILY #60 capsule 03/28/17 [Rx] Betamethasone/Propylene Glyc [Betamethasone Dp Aug 0.05% Lot] 1 appl TP MOWEFR 08/25/17 [History] Furosemide [Lasix] 20 mg PO DAILY PRN 08/25/17 [History] Oxygen 2 l NS AD 08/25/17 [History] Pravastatin Sodium 10 mg PO HS 08/25/17 [History] Simethicone [Gas-X] 160 mg PO BID PRN 08/25/17 [History] metFORMIN [Glucophage] 500 mg PO BID 08/25/17 [History] Lactobacillus [Culturelle] 1 each PO BID cap.sprink 08/31/17 [Rx] Aspirin [Lo-Dose Aspirin EC] 81 mg PO DAILY #30 tablet. 09/26/17 [Rx] Calcium Carbonate/Vitamin D3 [Calcium 500 + Vit D 200 Caplet] 1 tab PO BID 12/02 [History] Lipase/Protease/Amylase [Buck Abreu 12,000 Units Capsule] 1 cap PO BID 12/02/17 [ History] Lisinopril [Zestril] 20 mg PO DAILY 12/02/17 [History] Metoprolol [Lopressor] 50 mg PO BID 12/02/17 [History] Multivit-Min/FA/Lycopen/Lutein [A Thru Z Select Multivit Tab] 1 tab PO DAILY 10/16 [History] PARoxetine HCl [Paroxetine HCl] 10 mg PO DAILY 12/02/17 [History] levoFLOXacin [Levaquin] 750 mg PO Q24H #6 tablet 12/03/17 [Rx] metroNIDAZOLE [Flagyl] 500 mg PO TID #18 tablet 12/03/17 [Rx] 3 Allergy/AdvReac Type Severity Reaction Status Date / Time Penicillins Allergy Severe Anaphylaxis Verified 12/01/17 15:51 "Mycin meds" Allergy See Uncoded 10/03/17 10:49 Comments ROS unobtainable: other (Patient is deaf and cannot communicate) All Systems PM: A 10-system review of systems was performed and is negative for pertinent findings except as documented above in the HPI. - Constitutional Vitals: Temp Pulse Resp BP Pulse Ox 99.9 F H 86 20 126/70 98 01/30/18 16:58 01/30/18 16:58 01/30/18 16:58 01/30/18 16:58 01/30/18 16:58 General appearance: Present: no acute distress - Eye Eye exam: Present: normal appearance - ENT ENT exam: Present: mucous membranes moist - Respiratory Respiratory exam: Present: CTAB. Absent: accessory muscle use, rales, rhonchi, wheezes - Cardiovascular Cardiovascular exam: Present: RRR, +S1, +S2. Absent: diastolic murmur, gallop, rubs, systolic murmur - GI/Abdominal GI/Abdominal exam: Present: soft. Absent: distended - Extremities Exam Extremities exam: Absent: pedal edema - Skin Skin exam: Present: normal color Internal Med - H&P Results - Labs CBC & Chem 7: 01/30/18 08:30 01/30/18 08:30 - Assessment and plan (1) Pneumonia Current Visit: Yes Status: Acute Assessment and plan: In the ER, chest x-ray showed left basilar opacity suspicious for infiltrates. Will continue IV Levaquin and vancomycin for HAP coverage Qualifiers: Pneumonia type: due to unspecified organism Laterality: left Lung location: lower lobe of lung Qualified Code(s): J18.1 - Lobar pneumonia, unspecified organism (2) Acute on chronic respiratory failure with hypoxia Current Visit: No Status: Acute Assessment and plan: Suspect secondary to the above Continue supplemental oxygenation (3) Diabetes mellitus Current Visit: No Status: Chronic Assessment and plan: Will hold metformin and cover with sliding scale insulin Qualifiers: Diabetes mellitus type: type 2 Diabetes mellitus residential insulin use: without residential use Diabetes mellitus complication status: without complication Qualified Code(s): E11.9 - Type 2 diabetes mellitus without complications (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
[2018-01-30] MEDS ORDERED: Naloxone 0.4 MG/ML INJ IVP PRN (17:31)
[2018-01-30] MEDS: 0.9 % Sodium Chloride 1,000 ML IVC SCH (18:12)
--- NOTE | 2018-01-31 02:16 | Electrocardiograph Report ---
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
[2018-01-31 04:58] LABS: Basophils % 0.1 %; Eosinophils # 0.1 K/mcL (0.0-0.6); Eosinophils % 1.2 %; Hematocrit 36.3 % (35.3-44.9); Hemoglobin 12.2 g/dL (11.5-15.4); Immature Granulocytes % 0.3 % (0-4); Lymphocytes # 2.9 K/mcL (0.6-4.6); Lymphocytes % 43.5 %; Mean Corpuscular HGB Conc 33.6 g/dL (31.6-35.5); Mean Corpuscular Hemoglobin 32.8 pg (28.0-33.3); Mean Corpuscular Volume 97.6 fL (83.0-100.0); Mean Platelet Volume 9.9 fL (9.4-12.4); Monocytes # 0.8 K/mcL (0.0-1.3); Monocytes % 11.6 %; Neutrophils # 2.9 K/mcL (1.6-8.9); Platelet Count 128 K/mcL (140-400); Red Blood Count 3.72 M/mcL (3.82-4.97); Segmented Neutrophils % 43.3 %
[2018-01-31 05:14] LABS: BUN/Creatinine Ratio 17 (6-26); Blood Urea Nitrogen 7 mg/dL (8-23); Carbon Dioxide 30 mEq/L (23-29); Chloride 106 mEq/L (98-107); Glucose 145 mg/dL (70-105); Osmolality,Calculated 295 (280-300); Potassium 3.9 mEq/L (3.5-5.1); Sodium 142 mEq/L (136-145); eGFR For Non-African Americans > 60 (> 60)
[2018-01-31] MEDS: 0.9 % Sodium Chloride 1,000 ML IVC SCH (06:16)
[2018-01-31] MEDS: Levofloxacin 750 MG/150 ML 750 MG/150 ML BAG IVPB SCH (08:39)
[2018-01-31] MEDS ORDERED: Famotidine 20 MG TABLET PO PRN (08:55)
[2018-01-31] MEDS ORDERED: Simethicone 80 MG TAB.CHEW PO PRN (08:55)
[2018-01-31] MEDS ORDERED: LIPASE PO SCH (09:00)
[2018-01-31] MEDS ORDERED: PROTEASE PO SCH (09:00)
[2018-01-31] MEDS ORDERED: [UNRECOGNIZED DRUG - OTHER] PO SCH (09:00)
[2018-01-31] MEDS ORDERED: AMYLASE PO SCH (09:00)
[2018-01-31] MEDS: Divalproex (24 HR) 500 MG TABLET PO SCH (10:45)
[2018-01-31] MEDS: Lisinopril 20 MG TABLET PO SCH (10:46)
[2018-01-31] MEDS: Aspirin Enteric Coated 81 MG Tablet PO SCH (10:46)
[2018-01-31] MEDS: risperiDONE 0.25 MG TABLET PO SCH ×2 (10:47→21:36)
[2018-01-31] MEDS ORDERED: D5% in Water 1,000 ML IVC PRN (12:03)
[2018-01-31] MEDS ORDERED: Dextrose Gel 15 GM/37.5 ML TUBE PO PRN ×2 (12:03)
[2018-01-31] MEDS ORDERED: *HR* Dextrose 50 % in Water (Syg) 50 ML SYRINGE IVP PRN (12:03)
[2018-01-31] MEDS: Insulin LISPRO 300 UNITS/3 ML VIAL SQ SCH ×4 (12:50→21:36)
--- NOTE | 2018-01-31 13:01 | Internal Med Progress Note ---
<Juancho Bland R - Last Filed: 01/31/18 12:58> Hospitalist Progress Note - Encounter Date of Encounter: 01/31/18 Time of Encounter: 09:15 - Subjective Interval History: Pt resting comfortably on exam. Reports that she is feeling better today. She is having a little back pain. Denies other complaints. Conversation is difficult , but patient can answer simple questions. Denies chest pain, dyspnea, and abdominal pain. Will try to discuss with family when able for further history. - Exam Vitals: Temp Pulse Resp BP Pulse Ox 98.3 F 78 17 124/82 98 01/31/18 11:47 01/31/18 11:47 01/31/18 11:47 01/31/18 11:47 01/31/18 11:47 Exam: GEN: No acute distress, alert HEAD: Atraumatic, normocephalic EYES: Pupils symmetric, sclerae white, conjunctivae pink HEART: RRR, normal S1 and S2, no murmurs LUNGS: Clear to auscultation bilaterally, no wheezes, rhonchi, or crackles ABD: Soft, nontender, nondistended, bowel sounds present EXT: Mild edema noted, pulses 2/4 NEURO: No focal deficits, cooperative with exam - Assessment and Plan (1) Pneumonia Current Visit: Yes Status: Acute Assessment and Plan: Left lower lobe pneumonia Pt in no distress on exam, leukocytosis improving, lactic acid resolved Discontinue vancomycin without MRSA risk Continue Levaquin Continue respiratory support (2) Acute on chronic respiratory failure with hypoxia Current Visit: Yes Status: Acute Assessment and Plan: Continue O2 supplementation - on 3-4 L O2 at home. Currently maintaining O2 sat on home dose (3) Hypomagnesemia Current Visit: No Status: Resolved Assessment and Plan: Mag 1.3, replace (4) Diabetes mellitus Current Visit: No Status: Chronic Assessment and Plan: Continue metformin BG was in 200's this morning - will add low dose SSI (5) Seizure disorder Current Visit: No Status: Chronic Assessment and Plan: Continue home meds (6) 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 Assessment and Plan: Pt is deaf with MRDD lives in a fdc Hx is difficult to obtain Will try to contact family to help with history (7) Elevated lactic acid level Current Visit: Yes Status: Resolved Assessment and Plan: Now resolved (8) DVT prophylaxis Current Visit: Yes Status: Acute Assessment and Plan: Subq heparin - Time Spent with Patient Total time spent is greater than 50% in coordination of care (as documented) at patient's floor/unit and/or counseling patient: Internal Medicine: Result - Labs CBC & Chem 7: 01/31/18 04:40 01/31/18 04:40 Labs: Short CBC 01/31/18 Range/Units 04:40 WBC 6.7 (4.3-11.1) K/mcL Hgb 12.2 D (11.5-15.4) g/dL Hct 36.3 (35.3-44.9) % Plt Count 128 L (140-400) K/mcL Neutrophils # 2.9 (1.6-8.9) K/mcL BMP 01/31/18 04:40 Sodium 142 Potassium 3.9 Chloride 106 Carbon Dioxide 30 H BUN 7 L Creatinine 0.41 L Glucose 145 H Calcium 9.0 Consult Discharge Plan - Plan Referrals: Tyson Garcia MD [Primary Care Provider] - <Pilar Sims - Last Filed: 01/31/18 15:34> Hospitalist Progress Note - Encounter Date of Encounter: 01/31/18 - Exam Vitals: Temp Pulse Resp BP Pulse Ox 98.3 F 78 17 124/82 98 01/31/18 11:47 01/31/18 11:47 01/31/18 11:47 01/31/18 11:47 01/31/18 11:47 - Assessment and Plan (1) Diabetes mellitus Current Visit: No Status: Chronic (2) 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 (3) Pneumonia Current Visit: Yes Status: Acute (4) Acute on chronic respiratory failure with hypoxia Current Visit: Yes Status: Acute (5) DVT prophylaxis Current Visit: Yes Status: Acute - Time Spent with Patient Total time spent is greater than 50% in coordination of care (as documented) at patient's floor/unit and/or counseling patient: Internal Medicine: Result - Labs CBC & Chem 7: 01/31/18 04:40 01/31/18 04:40 Labs: Short CBC 01/31/18 Range/Units 04:40 WBC 6.7 (4.3-11.1) K/mcL Hgb 12.2 D (11.5-15.4) g/dL Hct 36.3 (35.3-44.9) % Plt Count 128 L (140-400) K/mcL Neutrophils # 2.9 (1.6-8.9) K/mcL BMP 01/31/18 04:40 Sodium 142 Potassium 3.9 Chloride 106 Carbon Dioxide 30 H BUN 7 L Creatinine 0.41 L Glucose 145 H Calcium 9.0 - Attending Attestation I have seen and examined this patient independently. I have discussed with resident physician Dr. Bland regarding the management plan. Agree with the documentation. <Juancho Bland - Last Filed: 01/31/18 12:58> (1) Pneumonia Qualifiers: Pneumonia type: due to unspecified organism Laterality: left Lung location: lower lobe of lung Qualified Code(s): J18.1 - Lobar pneumonia, unspecified organism (4) Diabetes mellitus Qualifiers: Diabetes mellitus type: type 2 Diabetes mellitus kinesiology professor insulin use: without kinesiology professor use Diabetes mellitus complication status: without complication Qualified Code(s): E11.9 - Type 2 diabetes mellitus without complications <Pilar Sims - Last Filed: 01/31/18 15:34> (1) Diabetes mellitus Qualifiers: Diabetes mellitus type: type 2 Diabetes mellitus fdc insulin use: without kinesiology professor use Diabetes mellitus complication status: without complication Qualified Code(s): E11.9 - Type 2 diabetes mellitus without complications (3) Pneumonia Qualifiers: Pneumonia type: due to unspecified organism Laterality: left Lung location: lower lobe of lung Qualified Code(s): J18.1 - Lobar pneumonia, unspecified organism
[2018-01-31] MEDS: *HR* Metformin 500 MG TABLET PO SCH (16:27)
[2018-01-31] MEDS: *HR* Heparin 5,000 UNIT/ML VIAL SQ SCH (17:45)
[2018-02-01 04:51] LABS: Hematocrit 33.9 % (35.3-44.9); Hemoglobin 11.3 g/dL (11.5-15.4); Mean Corpuscular HGB Conc 33.3 g/dL (31.6-35.5); Mean Corpuscular Hemoglobin 32.6 pg (28.0-33.3); Mean Corpuscular Volume 97.7 fL (83.0-100.0); Mean Platelet Volume 9.9 fL (9.4-12.4); Platelet Count 129 K/mcL (140-400); Red Blood Count 3.47 M/mcL (3.82-4.97)
[2018-02-01 05:09] LABS: BUN/Creatinine Ratio 14 (6-26); Blood Urea Nitrogen 8 mg/dL (8-23); Calcium 8.4 mg/dL (8.6-10.3); Carbon Dioxide 29 mEq/L (23-29); Chloride 106 mEq/L (98-107); Glucose 124 mg/dL (70-105); Magnesium 1.5 mg/dL (1.6-2.6); Osmolality,Calculated 292 (280-300); Potassium 4.2 mEq/L (3.5-5.1); Sodium 141 mEq/L (136-145); eGFR For Non-African Americans > 60 (> 60)
[2018-02-01] MEDS: *HR* Heparin 5,000 UNIT/ML VIAL SQ SCH ×2 (05:47→18:13)
[2018-02-01] MEDS: Insulin LISPRO 300 UNITS/3 ML VIAL SQ SCH ×4 (08:22→20:26)
[2018-02-01] MEDS: Aspirin Enteric Coated 81 MG Tablet PO SCH (09:14)
[2018-02-01] MEDS: Divalproex (24 HR) 500 MG TABLET PO SCH (09:14)
[2018-02-01] MEDS: *HR* Metformin 500 MG TABLET PO SCH ×2 (09:14→18:13)
[2018-02-01] MEDS: risperiDONE 0.25 MG TABLET PO SCH ×2 (09:15→20:25)
[2018-02-01] MEDS: Levofloxacin 750 MG/150 ML 750 MG/150 ML BAG IVPB SCH (09:15)
[2018-02-01] MEDS: Lisinopril 20 MG TABLET PO SCH (09:17)
--- NOTE | 2018-02-01 13:53 | Internal Med Progress Note ---
<BaldoJuancho R - Last Filed: 02/01/18 13:50> Hospitalist Progress Note - Encounter Date of Encounter: 02/01/18 Time of Encounter: 09:40 - Subjective Interval History: Pt resting comfortably on exam. Reports that she is feeling better today. Denies other complaints. Conversation is difficult, but patient can answer simple questions. Denies chest pain, dyspnea, and abdominal pain. Will try to discuss with family when able for further history. - Exam Vitals: Temp Pulse Resp BP Pulse Ox 97.9 F 68 17 132/84 94 02/01/18 11:23 02/01/18 11:23 02/01/18 11:23 02/01/18 11:23 02/01/18 11:23 Exam: GEN: No acute distress, A&Ox3 HEAD: Atraumatic, normocephalic EYES: Pupils symmetric, sclerae white, conjunctivae pink HEART: RRR, normal S1 and S2, no murmurs LUNGS: Clear to auscultation bilaterally, no wheezes, rhonchi, or crackles ABD: Soft, nontender, nondistended, bowel sounds present EXT: Mild edema noted, pulses 2/4 NEURO: No focal deficits, cooperative with exam - Assessment and Plan (1) Pneumonia Current Visit: Yes Status: Acute Assessment and Plan: Left lower lobe pneumonia, no distress on exam Afebrile, leukocytosis resolved, lactic acid resolved Switch to by mouth Levaquin, continue respiratory support Possibly able to discharge tomorrow (2) Acute on chronic respiratory failure with hypoxia Current Visit: Yes Status: Acute Assessment and Plan: Continue O2 supplementation, on 3-4 liters O2 at home Upon my exam she was not on O2 supplementation, and was in no respiratory distress (3) Diabetes mellitus Current Visit: No Status: Chronic Assessment and Plan: Blood glucose controlled Continue metformin and SSI (4) Seizure disorder Current Visit: No Status: Chronic Assessment and Plan: Continue home meds (5) 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 Assessment and Plan: Patient is deaf with MRDD who lives in a [facility] We will try to contact family Patient has home health services When ready plan is to discharge back to the [facility] with HH (6) Elevated lactic acid level Current Visit: Yes Status: Resolved (7) DVT prophylaxis Current Visit: Yes Status: Acute Assessment and Plan: Subcutaneous heparin - Time Spent with Patient Total time spent is greater than 50% in coordination of care (as documented) at patient's floor/unit and/or counseling patient: Internal Medicine: Result - Labs CBC & Chem 7: 02/01/18 04:04 02/01/18 04:04 Labs: Short CBC 02/01/18 Range/Units 04:04 WBC 6.1 (4.3-11.1) K/mcL Hgb 11.3 L (11.5-15.4) g/dL Hct 33.9 L (35.3-44.9) % Plt Count 129 L (140-400) K/mcL BMP 02/01/18 04:04 Sodium 141 Potassium 4.2 Chloride 106 Carbon Dioxide 29 BUN 8 Creatinine 0.57 L Glucose 124 H Calcium 8.4 L Consult Discharge Plan - Plan Referrals: Tyson Garcia MD [Primary Care Provider] - <Pilar Sims - Last Filed: 02/01/18 14:55> Hospitalist Progress Note - Encounter Date of Encounter: 02/01/18 - Exam Vitals: Temp Pulse Resp BP Pulse Ox 97.9 F 68 17 132/84 94 02/01/18 11:23 02/01/18 11:23 02/01/18 11:23 02/01/18 11:23 02/01/18 11:23 - Assessment and Plan (1) Diabetes mellitus Current Visit: No Status: Chronic (2) 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 (3) Pneumonia Current Visit: Yes Status: Acute (4) Acute on chronic respiratory failure with hypoxia Current Visit: Yes Status: Acute (5) DVT prophylaxis Current Visit: Yes Status: Acute - Time Spent with Patient Total time spent is greater than 50% in coordination of care (as documented) at patient's floor/unit and/or counseling patient: Internal Medicine: Result - Labs CBC & Chem 7: 02/01/18 04:04 02/01/18 04:04 Labs: Short CBC 02/01/18 Range/Units 04:04 WBC 6.1 (4.3-11.1) K/mcL Hgb 11.3 L (11.5-15.4) g/dL Hct 33.9 L (35.3-44.9) % Plt Count 129 L (140-400) K/mcL BMP 02/01/18 04:04 Sodium 141 Potassium 4.2 Chloride 106 Carbon Dioxide 29 BUN 8 Creatinine 0.57 L Glucose 124 H Calcium 8.4 L - Attending Attestation I have seen and examined this patient today. I have discussed with resident physician Dr Bland regarding the management plan. Agree with the documentation. <Juancho Bland R - Last Filed: 02/01/18 13:50> (1) Pneumonia Qualifiers: Pneumonia type: due to unspecified organism Laterality: left Lung location: lower lobe of lung Qualified Code(s): J18.1 - Lobar pneumonia, unspecified organism (3) Diabetes mellitus Qualifiers: Diabetes mellitus type: type 2 Diabetes mellitus detention insulin use: without detention use Diabetes mellitus complication status: without complication Qualified Code(s): E11.9 - Type 2 diabetes mellitus without complications <Pilar Sims - Last Filed: 02/01/18 14:55> (1) Diabetes mellitus Qualifiers: Diabetes mellitus type: type 2 Diabetes mellitus detention insulin use: without ensemble member use Diabetes mellitus complication status: without complication Qualified Code(s): E11.9 - Type 2 diabetes mellitus without complications (3) Pneumonia Qualifiers: Pneumonia type: due to unspecified organism Laterality: left Lung location: lower lobe of lung Qualified Code(s): J18.1 - Lobar pneumonia, unspecified organism
[2018-02-02] MEDS: *HR* Heparin 5,000 UNIT/ML VIAL SQ SCH (05:41)
[2018-02-02 07:28] LABS: Hematocrit 35.9 % (35.3-44.9); Hemoglobin 11.9 g/dL (11.5-15.4); Mean Corpuscular HGB Conc 33.1 g/dL (31.6-35.5); Mean Corpuscular Hemoglobin 31.6 pg (28.0-33.3); Mean Corpuscular Volume 95.2 fL (83.0-100.0); Mean Platelet Volume 9.9 fL (9.4-12.4); Platelet Count 151 K/mcL (140-400); Red Blood Count 3.77 M/mcL (3.82-4.97); Red Cell Distribution Width 11.9 % (11.5-14.5)
[2018-02-02] MEDS ORDERED: levoFLOXacin 750 MG TABLET PO SCH (09:00)
[2018-02-02] MEDS: Insulin LISPRO 300 UNITS/3 ML VIAL SQ SCH ×2 (09:06→12:27)
[2018-02-02 09:54] LABS: BUN/Creatinine Ratio 15 (6-26); Blood Urea Nitrogen 8 mg/dL (8-23); Carbon Dioxide 31 mEq/L (23-29); Chloride 104 mEq/L (98-107); Glucose 148 mg/dL (70-105); Magnesium 1.6 mg/dL (1.6-2.6); Osmolality,Calculated 295 (280-300); Potassium 4.1 mEq/L (3.5-5.1); Sodium 142 mEq/L (136-145); eGFR For Non-African Americans > 60 (> 60)
[2018-02-02] MEDS: Lisinopril 20 MG TABLET PO SCH (09:57)
[2018-02-02] MEDS: *HR* Metformin 500 MG TABLET PO SCH (09:57)
[2018-02-02] MEDS: Aspirin Enteric Coated 81 MG Tablet PO SCH (09:57)
[2018-02-02] MEDS: risperiDONE 0.25 MG TABLET PO SCH (09:57)
[2018-02-02] MEDS: Divalproex (24 HR) 500 MG TABLET PO SCH (10:00)
--- NOTE | 2018-02-02 10:29 | Discharge Summary ---
<Juancho Bland R - Last Filed: 02/02/18 10:26> - NOTES TO OUTPATIENT PROVIDER Notes to Outpatient Provider: To complete 4 more days of Levaquin Date of Encounter: 02/02/18 Time of Encounter: 10:26 - Discharge Diagnosis (1) Pneumonia Priority: Primary Status: Acute Qualifiers: Pneumonia type: due to unspecified organism Laterality: left Lung location: lower lobe of lung Qualified Code(s): J18.1 - Lobar pneumonia, unspecified organism (2) Acute on chronic respiratory failure with hypoxia Priority: Secondary Status: Acute (3) Diabetes mellitus Priority: Secondary Status: Chronic Qualifiers: Diabetes mellitus type: type 2 Diabetes mellitus intermediate designer insulin use: without intermediate designer use Diabetes mellitus complication status: without complication Qualified Code(s): E11.9 - Type 2 diabetes mellitus without complications (4) Seizure disorder Priority: Secondary Status: Chronic (5) 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 Lacey is a 72 year old female with PMH of HTN, HLD, DM, epilepsy, MRDD, and deafness, admitted on 01/30/18 due to acute on chronic hypoxic respiratory failure secondary to pneumonia. Chest x-ray showed left basilar opacity the patient was started on Levaquin and vancomycin. The next day the patient returned to her baseline home O2 supplementation level of 3-4 L. Her leukocytosis and lactic acid normalized. Antibiotics for de-escalated to Levaquin only. Patient continued to show significant improvement in her respiratory status. Patient is hemodynamically stable and ready for discharge. The patient can be discharged back to her long term with assistance of care by [facility] - Time Spent with Patient Total time spent providing and/or coordinating discharge services: - Discharge Medications Prescriptions: Lactobacillus [Culturelle] 2 each PO DAILY #14 cap.sprink levoFLOXacin [Levaquin] 750 mg PO DAILY #4 tablet Home Medications: risperiDONE [Risperidone] 0.5 mg PO BID #0 03/02/15 [History] Acetaminophen [Tylenol] 1,000 mg PO Q4H PRN 11/18/15 [History] Alendronate Sodium [Fosamax] 70 mg PO WE 11/18/15 [History] Bismuth Subsalicylate [PEPTO-BISMOL (262mg/15mL) Susp] 15 ml PO Q4H PRN [History] Cholecalciferol (D-3) [Vitamin D] 2,000 unit PO DAILY 11/18/15 [History] Divalproex (24 HR) [Depakote ER (24 HR)] 1,000 mg PO DAILY 11/18/15 [History] GuaiFENesin/Dextromethorphan [Robitussin/Dm] 10 ml PO BID PRN 11/18/15 [History] Haloperidol 0.5 mg PO BID PRN 11/18/15 [History] Loratadine [Claritin] 10 mg PO DAILY 11/18/15 [History] MOM Conc [MILK OF MAGNESIA conc] 30 ml PO DAILY PRN 11/18/15 [History] [place]-3/Dha/Epa/Fish Oil [Fish Oil 1,000 mg Softgel] 1,000 mg PO TID 11/18/15 [ History] Chloraseptic [place] [Chloraseptic] 2 spray MM Q2H PRN 03/01/16 [History] Ciclopirox [Loprox] 1 appl TP 3XW 03/01/16 [History] Dicyclomine [Bentyl] 10 mg PO QID 03/01/16 [History] Lipase/Protease/Amylase [Buck Abreu 24,000 Units Capsule] 1 each PO TIDWM [History] Omeprazole [PriLOSEC] 20 mg PO DAILY #30 cap 10/09/16 [Rx] Loperamide [Imodium] 2 mg PO DAILY #60 capsule 03/28/17 [Rx] Betamethasone/Propylene Glyc [Betamethasone Dp Aug 0.05% Lot] 1 appl TP MOWEFR 08/25/17 [History] Furosemide [Lasix] 20 mg PO DAILY PRN 08/25/17 [History] Oxygen 2 l NS AD 08/25/17 [History] Pravastatin Sodium 10 mg PO HS 08/25/17 [History] Simethicone [Gas-X] 160 mg PO BID PRN 08/25/17 [History] metFORMIN [Glucophage] 500 mg PO BID 08/25/17 [History] Aspirin [Lo-Dose Aspirin EC] 81 mg PO DAILY #30 tablet. 09/26/17 [Rx] Calcium Carbonate/Vitamin D3 [Calcium 500-Vit D3 200 Caplet] 1 tab PO BID [History] Lipase/Protease/Amylase [Buck Abreu 12,000 Units Capsule] 1 cap PO BID 12/02/17 [ History] Lisinopril [Zestril] 20 mg PO DAILY 12/02/17 [History] Metoprolol [Lopressor] 50 mg PO BID 12/02/17 [History] Multivit-Min/FA/Lycopen/Lutein [A Thru Z Select Multivit Tab] 1 tab PO DAILY 10/16 [History] PARoxetine HCl [Paroxetine HCl] 10 mg PO DAILY 12/02/17 [History] Ranitidine HCl [Acid Health Assistant] 150 mg PO BID PRN 01/31/18 [History] Selenium Sulfide [Selsun Blue] 1 appl TP 3XW 01/31/18 [History] Lactobacillus [Culturelle] 2 each PO DAILY #14 cap.sprink 02/02/18 [Rx] levoFLOXacin [Levaquin] 750 mg PO DAILY #4 tablet 02/02/18 [Rx] Allergies/Adverse Reactions: 3 Allergy/AdvReac Type Severity Reaction Status Date / Time Penicillins Allergy Severe Anaphylaxis Verified 12/01/17 15:51 "Mycin meds" Allergy See Uncoded 10/03/17 10:49 Comments Date of admission: 01/30/18 17:31 Primary care physician: Tyson Garcia MD Discharging clinician: Juancho Bland Anticipated date of discharge: 02/02/18 - Constitutional Vitals: Temp Pulse Resp BP Pulse Ox 97.5 F L 67 17 131/83 98 02/02/18 06:54 02/02/18 06:54 02/02/18 06:54 02/02/18 06:54 02/02/18 06:54 - Other Additional findings: GEN: No acute distress, alert HEAD: Atraumatic, normocephalic EYES: Pupils symmetric, sclera white, conjunctiva pink HEART: RRR, normal S1 and S2, no murmurs LUNGS: Clear to auscultation bilaterally, no wheezes, rhonchi, or crackles ABD: Soft, nontender, nondistended, bowel sounds present EXT: Mild edema noted, pulses 2/4 NEURO: No focal deficits, cooperative with exam - Patient Status Disposition: Home Health Service Condition: Good Overall status at discharge: patient is progressing back to baseline - Discharge Instructions Instructions: Levofloxacin (By mouth), Pneumonia (DC) Follow Up With: Tyson Garcia MD [Primary Care Provider] - Additional Instructions: Take Levaquin for 4 more days Take probiotics for 14 days Follow-up with her primary care physician - Diet and Activity Activity: increase activity as tolerated Diet: diabetic diet <Pilar Sims - Last Filed: 02/02/18 15:53> Date of Encounter: 02/02/18 - Discharge Diagnosis (1) Diabetes mellitus Status: Chronic Qualifiers: Diabetes mellitus type: type 2 Diabetes mellitus intermediate designer insulin use: without [place] use Diabetes mellitus complication status: without complication Qualified Code(s): E11.9 - Type 2 diabetes mellitus without complications (2) Moderately mentally retarded Status: Chronic (3) Pneumonia Status: Acute Qualifiers: Pneumonia type: due to unspecified organism Laterality: left Lung location: lower lobe of lung Qualified Code(s): J18.1 - Lobar pneumonia, unspecified organism (4) Acute on chronic respiratory failure with hypoxia Status: Acute (5) DVT prophylaxis Status: Acute Hospital course: Ms. Lacey is a 72 year old female - Time Spent with Patient Total time spent providing and/or coordinating discharge services: Date of admission: 01/30/18 17:31 Primary care physician: Tyson Garcia MD - Constitutional Vitals: Temp Pulse Resp BP Pulse Ox 99.0 F 65 16 163/80 98 02/02/18 11:18 02/02/18 11:18 02/02/18 11:18 02/02/18 11:18 02/02/18 11:18 - Attending Attestation I have seen and examined this patient independently. I have discussed with resident physician Dr. Bland regarding the discharge and follow-up plan. Agree with that documentation.
--- NOTE | 2018-02-02 10:36 | Physician Discharge Referral ---
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 For more information, call the [place] Tobacco Quit Line at 5-173-JXCW-NOW. - Diet/Nutrition Diet/Nutrition: List: Diabetic diet - Activity Activity Orders: Up ad vika - Services Needed Following services are medically necessary services: Nursing, Home Health Aide Other Treatments: Patient is on Levaquin to be continued for 4 days upon discharge. Patient is also to take probiotics for a total of 14 days - Transfer Medications Prescriptions: Lactobacillus [Culturelle] 2 each PO DAILY #14 cap.sprink levoFLOXacin [Levaquin] 750 mg PO DAILY #4 tablet Home Medications: risperiDONE [Risperidone] 0.5 mg PO BID #0 03/02/15 [History] Acetaminophen [Tylenol] 1,000 mg PO Q4H PRN 11/18/15 [History] Alendronate Sodium [Fosamax] 70 mg PO WE 11/18/15 [History] Bismuth Subsalicylate [PEPTO-BISMOL (262mg/15mL) Susp] 15 ml PO Q4H PRN [History] Cholecalciferol (D-3) [Vitamin D] 2,000 unit PO DAILY 11/18/15 [History] Divalproex (24 HR) [Depakote ER (24 HR)] 1,000 mg PO DAILY 11/18/15 [History] GuaiFENesin/Dextromethorphan [Robitussin/Dm] 10 ml PO BID PRN 11/18/15 [History] Haloperidol 0.5 mg PO BID PRN 11/18/15 [History] Loratadine [Claritin] 10 mg PO DAILY 11/18/15 [History] MOM Conc [MILK OF MAGNESIA conc] 30 ml PO DAILY PRN 11/18/15 [History] [place]-3/Dha/Epa/Fish Oil [Fish Oil 1,000 mg Softgel] 1,000 mg PO TID 11/18/15 [ History] Chloraseptic [place] [Chloraseptic] 2 spray MM Q2H PRN 03/01/16 [History] Ciclopirox [Loprox] 1 appl TP 3XW 03/01/16 [History] Dicyclomine [Bentyl] 10 mg PO QID 03/01/16 [History] Lipase/Protease/Amylase [Buck Abreu 24,000 Units Capsule] 1 each PO TIDWM [History] Omeprazole [PriLOSEC] 20 mg PO DAILY #30 cap 10/09/16 [Rx] Loperamide [Imodium] 2 mg PO DAILY #60 capsule 03/28/17 [Rx] Betamethasone/Propylene Glyc [Betamethasone Dp Aug 0.05% Lot] 1 appl TP MOWEFR 08/25/17 [History] Furosemide [Lasix] 20 mg PO DAILY PRN 08/25/17 [History] Oxygen 2 l NS AD 08/25/17 [History] Pravastatin Sodium 10 mg PO HS 08/25/17 [History] Simethicone [Gas-X] 160 mg PO BID PRN 08/25/17 [History] metFORMIN [Glucophage] 500 mg PO BID 08/25/17 [History] Aspirin [Lo-Dose Aspirin EC] 81 mg PO DAILY #30 tablet. 09/26/17 [Rx] Calcium Carbonate/Vitamin D3 [Calcium 500-Vit D3 200 Caplet] 1 tab PO BID [History] Lipase/Protease/Amylase [Buck Abreu 12,000 Units Capsule] 1 cap PO BID 12/02/17 [ History] Lisinopril [Zestril] 20 mg PO DAILY 12/02/17 [History] Metoprolol [Lopressor] 50 mg PO BID 12/02/17 [History] Multivit-Min/FA/Lycopen/Lutein [A Thru Z Select Multivit Tab] 1 tab PO DAILY 10/16 [History] PARoxetine HCl [Paroxetine HCl] 10 mg PO DAILY 12/02/17 [History] Ranitidine HCl [Acid Right Of Way Supervisor] 150 mg PO BID PRN 01/31/18 [History] Selenium Sulfide [Selsun Blue] 1 appl TP 3XW 01/31/18 [History] Lactobacillus [Culturelle] 2 each PO DAILY #14 cap.sprink 02/02/18 [Rx] levoFLOXacin [Levaquin] 750 mg PO DAILY #4 tablet 02/02/18 [Rx] Allergies/Adverse Reactions: 3 Allergy/AdvReac Type Severity Reaction Status Date / Time Penicillins Allergy Severe Anaphylaxis Verified 12/01/17 15:51 "Mycin meds" Allergy See Uncoded 10/03/17 10:49 Comments Certification: Further, I certify that my clinical findings support that this patient is homebound (i.e. absences from home require considerable and taxing effort and are for medical reasons or restorationism services or infrequently or short duration when for other reasons) because: Homebound Reason: Leaving home requires considerable and taxing effort due to condition Attestation: My signature below is to certify that this patient is under my care and that I, or nurse practitioner, or a physician's patent legal assistant working with me, has a face-to -face encounter with this patient.
[2018-02-02 11:21] VITALS: BP 163/80
== END 2018-02-02 13:24 | disposition home health service (06) | DRG 193 ==
LOC: EMEROO 07:28 → 2ANU 07:28
PROVIDERS: ADMIT Hospitalist; ATTEND Hospitalist

== ENCOUNTER 2019-06-28 19:49 | Inpatient (IN) ==
[2019-06-28 20:16] LABS: Basophils % 0.2 %; Eosinophils % 0.4 %; Hematocrit 38.6 % (35.3-44.9); Hemoglobin 12.9 g/dL (11.5-15.4); Immature Granulocytes % 0.3 % (0-4); Lymphocytes # 2.6 K/mcL (0.6-4.6); Lymphocytes % 24.1 %; Mean Corpuscular HGB Conc 33.4 g/dL (31.6-35.5); Mean Corpuscular Hemoglobin 32.6 pg (28.0-33.3); Mean Corpuscular Volume 97.5 fL (83.0-100.0); Mean Platelet Volume 9.8 fL (9.4-12.4); Monocytes # 1.3 K/mcL (0.0-1.3); Neutrophils # 6.8 K/mcL (1.6-8.9); Platelet Count 147 K/mcL (140-400); Red Blood Count 3.96 M/mcL (3.82-4.97); Red Cell Distribution Width 11.7 % (11.5-14.5); White Blood Count 10.8 K/mcL (4.3-11.1)
[2019-06-28 20:27] LABS: Prothrombin Time 10.8 Seconds (9.4-12.1)
[2019-06-28 20:30] LABS: Activated Partial Thrombo Time 28.9 Seconds (26.0-36.0)
[2019-06-28 20:39] LABS: Alanine Aminotransferase 12 Units/L (7-52); Albumin 3.5 g/dL (3.5-5.7); Albumin/Globulin Ratio 1.5 (1.1-2.2); Alkaline Phosphatase 35 Units/L (34-104); Aspartate Amino Transferase 12 Units/L (13-39); BUN/Creatinine Ratio 23 (6-26); Bilirubin,Indirect 0.2 mg/dL (0.0-1.0); Bilirubin,Total 0.2 mg/dL (0.3-1.0); Blood Urea Nitrogen 16 mg/dL (8-23); Calcium 9.5 mg/dL (8.6-10.3); Carbon Dioxide 30 mEq/L (23-29); Chloride 102 mEq/L (98-107); Globulin 2.4 g/dL (2.4-3.5); Glucose 164 mg/dL (70-105); Osmolality,Calculated 297 (280-300); Potassium 3.9 mEq/L (3.5-5.1); Sodium 141 mEq/L (136-145); Total Protein 5.9 g/dL (6.4-8.9); Troponin I < 0.03 ng/mL (< 0.04); eGFR For African Americans > 60 (> 60); eGFR For Non-African Americans > 60 (> 60)
[2019-06-28 20:40] LABS: Bilirubin,Urine Negative (Negative); Blood,Urine Negative (Negative); Clarity,Urine Clear (Clear); Color,Urine Yellow (Yellow); Glucose,Urine (UA) Normal (Normal); Ketones,Urine Trace mg/dL (Negative); Leukocyte Esterase,Urine Negative (Negative); Nitrite,Urine Negative (Negative); Protein,Urine Negative (Neg-Trace); Specific Gravity,Urine 1.024 (1.010-1.025); Urobilinogen,Urine Normal (Normal)
[2019-06-28 21:32] LABS: ABG Base Excess 4 mEq/L (-2 to 3); ABG HCO3 30 mEq/L (21-27); ABG Oxygen Saturation 97 % (95-98); ABG PCO2 54 mmHg (35-45); ABG PH 7.36 pH Units (7.32-7.45); ABG PO2 94 mmHg (85-104); ABG TCO2 32 mEq/L (20-26)
[2019-06-29] MEDS ORDERED: D5% in Water 1,000 ML IVC PRN (01:16)
[2019-06-29] MEDS ORDERED: Naloxone 0.4 MG/ML INJ IVP PRN (01:16)
[2019-06-29] MEDS ORDERED: *HR* Dextrose 50 % in Water (Syg) 50 ML SYRINGE IVP PRN (01:16)
[2019-06-29] MEDS ORDERED: Dextrose Gel 15 GM/37.5 ML TUBE PO PRN ×2 (01:16)
[2019-06-29] MEDS ORDERED: Valproic Acid INJ 500 MG in 0.9 % Sodium Chloride 100 ML IVPB SCH (01:18)
[2019-06-29] MEDS: risperiDONE 1 MG TABLET PO SCH ×2 (02:46→11:57)
[2019-06-29 04:35] LABS: Basophils % 0.1 %; Eosinophils # 0.1 K/mcL (0.0-0.6); Eosinophils % 0.7 %; Hematocrit 37.5 % (35.3-44.9); Hemoglobin 12.6 g/dL (11.5-15.4); Immature Granulocytes % 0.2 % (0-4); Lymphocytes # 2.7 K/mcL (0.6-4.6); Mean Corpuscular HGB Conc 33.6 g/dL (31.6-35.5); Mean Corpuscular Hemoglobin 32.3 pg (28.0-33.3); Mean Corpuscular Volume 96.2 fL (83.0-100.0); Mean Platelet Volume 10.1 fL (9.4-12.4); Monocytes # 0.9 K/mcL (0.0-1.3); Monocytes % 9.6 %; Neutrophils # 5.2 K/mcL (1.6-8.9); Platelet Count 153 K/mcL (140-400); Red Cell Distribution Width 11.8 % (11.5-14.5); Segmented Neutrophils % 58.4 %; White Blood Count 8.8 K/mcL (4.3-11.1)
[2019-06-29 04:57] LABS: Alanine Aminotransferase 11 Units/L (7-52); Albumin 3.4 g/dL (3.5-5.7); Albumin/Globulin Ratio 1.4 (1.1-2.2); Alkaline Phosphatase 32 Units/L (34-104); Aspartate Amino Transferase 11 Units/L (13-39); BUN/Creatinine Ratio 25 (6-26); Bilirubin,Total 0.2 mg/dL (0.3-1.0); Blood Urea Nitrogen 13 mg/dL (8-23); Calcium 9.4 mg/dL (8.6-10.3); Carbon Dioxide 32 mEq/L (23-29); Chloride 102 mEq/L (98-107); Chol/HDL Ratio 3.5 (0-4.9); Cholesterol 119 mg/dL (< 200); Globulin 2.4 g/dL (2.4-3.5); Glucose 122 mg/dL (70-105); HDL Cholesterol 34 mg/dL (40-59); LDL Cholesterol,Calculated 58 mg/dL (0-99); Magnesium 1.2 mg/dL (1.6-2.6); Osmolality,Calculated 299 (280-300); Phosphorous 3.4 mg/dL (2.7-4.5); Potassium 3.8 mEq/L (3.5-5.1); Sodium 144 mEq/L (136-145); Total Protein 5.8 g/dL (6.4-8.9); Triglycerides 137 mg/dL (< 150); eGFR For African Americans > 60 (> 60); eGFR For Non-African Americans > 60 (> 60)
[2019-06-29] MEDS: Insulin LISPRO 300 UNITS/3 ML VIAL SQ SCH ×3 (05:52→17:32)
[2019-06-29] MEDS ORDERED: Lisinopril 20 MG TABLET PO SCH (09:00)
[2019-06-29] MEDS: Valproic Acid INJ 500 MG in 0.9 % Sodium Chloride 100 ML IVPB SCH ×2 (12:05→21:33)
[2019-06-29] MEDS: Aspirin Enteric Coated 81 MG Tablet PO SCH (12:05)
[2019-06-29] MEDS: Loratadine 10 MG TABLET PO SCH (12:05)
[2019-06-29 13:28] LABS: VBG HCO3 31 mEq/L (21-27); VBG PCO2 54 mmHg (41-51); VBG PH 7.37 pH Units (7.32-7.42); VBG PO2 110 mmHg (25-50)
[2019-06-30] MEDS: Insulin LISPRO 300 UNITS/3 ML VIAL SQ SCH ×5 (02:00→21:28)
[2019-06-30 05:28] LABS: Chol/HDL Ratio 3.8 (0-4.9)
[2019-06-30] MEDS: Divalproex (24 HR) 500 MG TABLET PO SCH (09:41)
[2019-06-30] MEDS: Loratadine 10 MG TABLET PO SCH (09:41)
[2019-06-30] MEDS: Aspirin Enteric Coated 81 MG Tablet PO SCH (09:41)
[2019-06-30 10:40] LABS: Estimated Average Glucose 146 mg/dl
[2019-07-01] MEDS ORDERED: Furosemide 20 MG TABLET PO ONE (09:00)
[2019-07-01] MEDS: Aspirin Enteric Coated 81 MG Tablet PO SCH (09:24)
[2019-07-01] MEDS: Divalproex (24 HR) 500 MG TABLET PO SCH (09:24)
[2019-07-01] MEDS: Loratadine 10 MG TABLET PO SCH (09:24)
[2019-07-01] MEDS: Insulin LISPRO 300 UNITS/3 ML VIAL SQ SCH ×4 (09:25→22:21)
[2019-07-01] MEDS ORDERED: Perflutren Lipid Microsphere 1.3 ML in 0.9 % Sodium Chloride 8.7 ML IVP ONE (11:06)
[2019-07-02 07:54] LABS: Basophils % 0.3 %; Eosinophils # 0.1 K/mcL (0.0-0.6); Eosinophils % 1.4 %; Immature Granulocytes % 0.2 % (0-4); Lymphocytes # 2.7 K/mcL (0.6-4.6); Lymphocytes % 31.2 %; Mean Corpuscular HGB Conc 34.1 g/dL (31.6-35.5); Mean Corpuscular Hemoglobin 32.9 pg (28.0-33.3); Mean Corpuscular Volume 96.5 fL (83.0-100.0); Mean Platelet Volume 9.7 fL (9.4-12.4); Monocytes # 1.1 K/mcL (0.0-1.3); Monocytes % 12.3 %; Neutrophils # 4.8 K/mcL (1.6-8.9); Platelet Count 188 K/mcL (140-400); Red Blood Count 4.25 M/mcL (3.82-4.97); Red Cell Distribution Width 11.6 % (11.5-14.5); Segmented Neutrophils % 54.6 %; White Blood Count 8.8 K/mcL (4.3-11.1)
[2019-07-02 08:12] LABS: BUN/Creatinine Ratio 18 (6-26); Blood Urea Nitrogen 10 mg/dL (8-23); Calcium 9.6 mg/dL (8.6-10.3); Carbon Dioxide 31 mEq/L (23-29); Chloride 97 mEq/L (98-107); Glucose 181 mg/dL (70-105); Magnesium 1.4 mg/dL (1.6-2.6); Osmolality,Calculated 290 (280-300); Potassium 4.1 mEq/L (3.5-5.1); Sodium 138 mEq/L (136-145); eGFR For African Americans > 60 (> 60); eGFR For Non-African Americans > 60 (> 60)
[2019-07-02] MEDS: Divalproex (24 HR) 500 MG TABLET PO SCH (08:57)
[2019-07-02] MEDS: Aspirin Enteric Coated 81 MG Tablet PO SCH (08:58)
[2019-07-02] MEDS: Loratadine 10 MG TABLET PO SCH (08:58)
[2019-07-02] MEDS: Insulin LISPRO 300 UNITS/3 ML VIAL SQ SCH ×3 (09:04→17:40)
[2019-07-02 17:33] VITALS: BP 113/69
[2019-07-02] MEDS ORDERED: Magnesium Oxide 400 MG TABLET PO SCH (21:00)
== END 2019-07-02 19:41 | disposition home health service (06) | DRG 71 ==
LOC: 3ANU 19:49 → EMEROOARM 19:49 → SUATTDRO 23:46 → 3ANU 06-29 00:25
PROVIDERS: ADMIT Family Medicine; ATTEND Internal Medicine

== ENCOUNTER 2019-07-04 14:00 | Inpatient (IN) ==
[2019-07-04 14:39] LABS: Basophils % 0.4 %; Eosinophils # 0.1 K/mcL (0.0-0.6); Eosinophils % 0.5 %; Hematocrit 40.3 % (35.3-44.9); Hemoglobin 13.7 g/dL (11.5-15.4); Immature Granulocytes % 0.5 % (0-4); Lymphocytes % 27.5 %; Mean Corpuscular Volume 97.1 fL (83.0-100.0); Mean Platelet Volume 9.8 fL (9.4-12.4); Monocytes # 0.9 K/mcL (0.0-1.3); Monocytes % 8.6 %; Neutrophils # 6.8 K/mcL (1.6-8.9); Platelet Count 236 K/mcL (140-400); Red Blood Count 4.15 M/mcL (3.82-4.97); Red Cell Distribution Width 11.4 % (11.5-14.5); Segmented Neutrophils % 62.5 %; White Blood Count 10.9 K/mcL (4.3-11.1)
[2019-07-04 14:42] LABS: Prothrombin Time 11.9 Seconds (9.4-12.1)
[2019-07-04 15:02] LABS: Platelet Estimate Normal (Normal)
[2019-07-04 16:55] LABS: VBG HCO3 31 mEq/L (21-27); VBG PCO2 54 mmHg (41-51); VBG PH 7.37 pH Units (7.32-7.42); VBG PO2 67 mmHg (25-50)
[2019-07-04 17:10] LABS: Alanine Aminotransferase 17 Units/L (7-52); Albumin 3.6 g/dL (3.5-5.7); Albumin/Globulin Ratio 1.2 (1.1-2.2); Alkaline Phosphatase 50 Units/L (34-104); Aspartate Amino Transferase 11 Units/L (13-39); BUN/Creatinine Ratio 36 (6-26); Bilirubin,Indirect 0.2 mg/dL (0.0-1.0); Bilirubin,Total 0.2 mg/dL (0.3-1.0); Blood Urea Nitrogen 32 mg/dL (8-23); Calcium 10.9 mg/dL (8.6-10.3); Carbon Dioxide 31 mEq/L (23-29); Chloride 97 mEq/L (98-107); Ethanol < 10 mg/dL (Less than 10); Globulin 2.9 g/dL (2.4-3.5); Glucose 195 mg/dL (70-105); Osmolality,Calculated 302 (280-300); Potassium 4.5 mEq/L (3.5-5.1); Sodium 140 mEq/L (136-145); Total Protein 6.5 g/dL (6.4-8.9); Valproate 36 mcg/mL (50-100); eGFR For African Americans > 60 (> 60); eGFR For Non-African Americans > 60 (> 60)
[2019-07-04] MEDS ORDERED: 0.9 % Sodium Chloride 1,000 ML IV ONE (17:40)
[2019-07-04] MEDS ORDERED: Acetaminophen 325 MG TABLET PO PRN (20:41)
[2019-07-04] MEDS ORDERED: Naloxone 0.4 MG/ML INJ IVP PRN ×2 (20:41→23:33)
[2019-07-04] MEDS ORDERED: Ondansetron ODT 4 MG TAB.RAPDIS SL PRN (20:41)
[2019-07-04 22:12] LABS: Magnesium 1.3 mg/dL (1.6-2.6); Phosphorous 4.8 mg/dL (2.7-4.5)
[2019-07-05] MEDS ORDERED: Dextrose Gel 15 GM/37.5 ML TUBE PO PRN ×2 (00:14)
[2019-07-05] MEDS ORDERED: D5% in Water 1,000 ML IVC PRN (00:14)
[2019-07-05] MEDS ORDERED: *HR* Dextrose 50 % in Water (Syg) 50 ML SYRINGE IVP PRN (00:14)
[2019-07-05] MEDS: Ringers Solution, Lactated 1,000 ML IVC SCH (04:23)
[2019-07-05] MEDS: *HR* Heparin 5,000 UNIT/ML VIAL SQ SCH ×3 (05:36→21:49)
[2019-07-05] MEDS: Insulin LISPRO 300 UNITS/3 ML VIAL SQ SCH ×4 (05:36→22:02)
[2019-07-05 06:28] LABS: Basophils % 0.3 %; Eosinophils # 0.1 K/mcL (0.0-0.6); Hematocrit 38.6 % (35.3-44.9); Hemoglobin 12.9 g/dL (11.5-15.4); Immature Granulocytes % 0.3 % (0-4); Mean Corpuscular HGB Conc 33.4 g/dL (31.6-35.5); Mean Corpuscular Hemoglobin 32.3 pg (28.0-33.3); Mean Corpuscular Volume 96.5 fL (83.0-100.0); Mean Platelet Volume 9.6 fL (9.4-12.4); Monocytes # 0.7 K/mcL (0.0-1.3); Monocytes % 10.1 %; Platelet Count 205 K/mcL (140-400); Red Cell Distribution Width 11.3 % (11.5-14.5); Segmented Neutrophils % 44.3 %; White Blood Count 6.8 K/mcL (4.3-11.1)
[2019-07-05 06:45] LABS: BUN/Creatinine Ratio 42 (6-26); Blood Urea Nitrogen 21 mg/dL (8-23); Calcium 9.7 mg/dL (8.6-10.3); Carbon Dioxide 32 mEq/L (23-29); Chloride 99 mEq/L (98-107); Glucose 176 mg/dL (70-105); Osmolality,Calculated 303 (280-300); Potassium 3.7 mEq/L (3.5-5.1); Sodium 143 mEq/L (136-145); eGFR For African Americans > 60 (> 60); eGFR For Non-African Americans > 60 (> 60)
[2019-07-05 07:35] LABS: Platelet Estimate Normal (Normal); Reactive Lymphocytes Present (Not Present)
[2019-07-05] MEDS: Divalproex (24 HR) 500 MG TABLET PO SCH (08:58)
[2019-07-05] MEDS: risperiDONE 1 MG TABLET PO SCH ×2 (08:58→21:45)
[2019-07-05] MEDS: Aspirin Enteric Coated 81 MG Tablet PO SCH (08:58)
[2019-07-05] MEDS: Lisinopril 20 MG TABLET PO SCH (08:59)
[2019-07-05 21:31] LABS: Bilirubin,Urine Negative (Negative); Blood,Urine Moderate (Negative); Clarity,Urine Cloudy (Clear); Color,Urine Yellow (Yellow); Glucose,Urine (UA) Normal (Normal); Ketones,Urine Negative (Negative); Leukocyte Esterase,Urine Moderate (Negative); Nitrite,Urine Negative (Negative); PH,Urine 7.5 pH Units (5.0-8.0); Protein,Urine Negative (Neg-Trace); Specific Gravity,Urine 1.022 (1.010-1.025); Urobilinogen,Urine Normal (Normal)
[2019-07-05 21:36] LABS: Bacteria,Urine None Seen per hpf (None-Few); Hyaline Casts,Urine None Seen per lpf (None-Few); RBC,Urine 15-30 per hpf (0-3); Squamous Epithelial Cell,Urine Many per lpf (None-Few); WBC,Urine 15-30 per hpf (0-3)
[2019-07-05 21:43] LABS: Amphetamine Screen,Urine Negative ng/mL (Cutoff=1000); Barbiturate Screen,Urine Negative ng/mL (Cutoff=200); Benzodiazepines Screen,Urine Negative ng/mL (Cutoff=200); Cannabinoid Screen,Urine Negative ng/mL (Cutoff = 50); Cocaine Screen,Urine Negative ng/mL (Cutoff= 300); Opiate Screen,Urine Negative ng/mL (Cutoff=300); Phencyclidine Screen,Urine Negative ng/mL (Cutoff=25)
[2019-07-05] MEDS: Simethicone 80 MG TAB.CHEW PO SCH (21:45)
[2019-07-05] MEDS: levoFLOXacin 750 MG/150 ML 750 MG/150 ML BAG IVPB SCH (21:46)
[2019-07-05] MEDS: Vancomycin Oral Soln 125 MG/2.5 ML UDC PO SCH (23:23)
[2019-07-06 06:17] LABS: Basophils % 0.4 %; Eosinophils # 0.1 K/mcL (0.0-0.6); Eosinophils % 1.2 %; Hematocrit 37.1 % (35.3-44.9); Hemoglobin 12.7 g/dL (11.5-15.4); Immature Granulocytes % 0.6 % (0-4); Lymphocytes # 2.9 K/mcL (0.6-4.6); Lymphocytes % 37.5 %; Mean Corpuscular HGB Conc 34.2 g/dL (31.6-35.5); Mean Corpuscular Hemoglobin 32.7 pg (28.0-33.3); Mean Corpuscular Volume 95.6 fL (83.0-100.0); Mean Platelet Volume 9.4 fL (9.4-12.4); Monocytes % 12.5 %; Neutrophils # 3.7 K/mcL (1.6-8.9); Platelet Count 223 K/mcL (140-400); Red Blood Count 3.88 M/mcL (3.82-4.97); Red Cell Distribution Width 11.3 % (11.5-14.5); Segmented Neutrophils % 47.8 %; White Blood Count 7.8 K/mcL (4.3-11.1)
[2019-07-06 06:35] LABS: BUN/Creatinine Ratio 20 (6-26); Blood Urea Nitrogen 12 mg/dL (8-23); Calcium 9.7 mg/dL (8.6-10.3); Carbon Dioxide 32 mEq/L (23-29); Chloride 99 mEq/L (98-107); Glucose 201 mg/dL (70-105); Osmolality,Calculated 295 (280-300); Sodium 140 mEq/L (136-145); eGFR For African Americans > 60 (> 60); eGFR For Non-African Americans > 60 (> 60)
[2019-07-06] MEDS: *HR* Heparin 5,000 UNIT/ML VIAL SQ SCH ×3 (07:46→22:07)
[2019-07-06] MEDS: Aspirin Enteric Coated 81 MG Tablet PO SCH (11:46)
[2019-07-06] MEDS: Divalproex (24 HR) 500 MG TABLET PO SCH (11:46)
[2019-07-06] MEDS: Simethicone 80 MG TAB.CHEW PO SCH ×3 (11:46→22:00)
[2019-07-06] MEDS: risperiDONE 1 MG TABLET PO SCH ×2 (11:47→22:00)
[2019-07-06] MEDS: Lisinopril 20 MG TABLET PO SCH (11:47)
[2019-07-06] MEDS: Vancomycin Oral Soln 125 MG/2.5 ML UDC PO SCH ×4 (11:48→22:00)
[2019-07-06] MEDS: Insulin LISPRO 300 UNITS/3 ML VIAL SQ SCH ×4 (11:48→22:07)
[2019-07-06] MEDS: Ringers Solution, Lactated 1,000 ML IVC SCH ×5 (12:05→23:41)
[2019-07-06] MEDS: levoFLOXacin 750 MG/150 ML 750 MG/150 ML BAG IVPB SCH (17:51)
[2019-07-07] MEDS: *HR* Heparin 5,000 UNIT/ML VIAL SQ SCH (06:03)
[2019-07-07 06:24] LABS: Basophils % 0.4 %; Eosinophils # 0.1 K/mcL (0.0-0.6); Eosinophils % 1.5 %; Hematocrit 37.5 % (35.3-44.9); Hemoglobin 12.4 g/dL (11.5-15.4); Immature Granulocytes % 0.8 % (0-4); Lymphocytes # 3.4 K/mcL (0.6-4.6); Lymphocytes % 45.9 %; Mean Corpuscular HGB Conc 33.1 g/dL (31.6-35.5); Mean Corpuscular Hemoglobin 31.8 pg (28.0-33.3); Mean Corpuscular Volume 96.2 fL (83.0-100.0); Mean Platelet Volume 9.3 fL (9.4-12.4); Monocytes # 0.7 K/mcL (0.0-1.3); Monocytes % 9.8 %; Neutrophils # 3.1 K/mcL (1.6-8.9); Platelet Count 218 K/mcL (140-400); Red Cell Distribution Width 11.3 % (11.5-14.5); Segmented Neutrophils % 41.6 %; White Blood Count 7.5 K/mcL (4.3-11.1)
[2019-07-07 06:38] LABS: BUN/Creatinine Ratio 20 (6-26); Blood Urea Nitrogen 12 mg/dL (8-23); Calcium 9.4 mg/dL (8.6-10.3); Carbon Dioxide 30 mEq/L (23-29); Chloride 102 mEq/L (98-107); Glucose 200 mg/dL (70-105); Osmolality,Calculated 299 (280-300); Potassium 4.2 mEq/L (3.5-5.1); Sodium 142 mEq/L (136-145); eGFR For African Americans > 60 (> 60); eGFR For Non-African Americans > 60 (> 60)
[2019-07-07] MEDS: Aspirin Enteric Coated 81 MG Tablet PO SCH (08:36)
[2019-07-07] MEDS: Simethicone 80 MG TAB.CHEW PO SCH (08:36)
[2019-07-07] MEDS: risperiDONE 1 MG TABLET PO SCH (08:36)
[2019-07-07] MEDS: Vancomycin Oral Soln 125 MG/2.5 ML UDC PO SCH ×2 (08:36→12:25)
[2019-07-07] MEDS: Divalproex (24 HR) 500 MG TABLET PO SCH (08:36)
[2019-07-07] MEDS: Lisinopril 20 MG TABLET PO SCH (08:37)
[2019-07-07] MEDS: Insulin LISPRO 300 UNITS/3 ML VIAL SQ SCH ×2 (08:37→12:25)
[2019-07-07] MEDS: Ringers Solution, Lactated 1,000 ML IVC SCH (09:46)
[2019-07-07 10:58] VITALS: BP 126/68
== END 2019-07-07 15:11 | disposition other institution (70) | DRG 371 ==
LOC: CDU 14:00 → EMEROOARM 14:00 → SUATTDRO 18:37 → CDU 20:29
PROVIDERS: ADMIT Family Medicine; ATTEND Student in an Organized Health Care Education/Training Program